=== PATIENT | female | born 1960 | race Caucasian/White ===

== ENCOUNTER 2020-12-10 16:46 | Emergency (ER) | payer MEDICARE, SELFPAY ==
--- NOTE | ~2020-12-10 | XR_ITS ---
XR chest 2V DATE: 12/10/2020 17:47 INDICATION: Posterior the mid upper thoracic/back pain today. History of hypertension. TECHNIQUE: PA and lateral views COMPARISON: 05/12/2015 PA and lateral chest FINDINGS: Normal heart size. There is aortic unfolding. No hilar or mediastinal enlargement. No pulmo nary infiltrate or consolidation, pleural effusion or pulmonary vascular congestion or pneumothorax. Included skeletal structures are unremarkable. IMPRESSION: No active cardiopulmonary disease Aortic unfolding Reviewed, dictated and finalized at location [facility].
--- NOTE | ~2020-12-10 | CT_ITS ---
EXAMINATION: CTA chest PE protocol DATE: 12/10/2020 18:59 INDICATION: Right posterior chest pain TECHNIQUE: Computed tomography angiography (CTA) of the chest was performed with 100 mL Omnipaque-350 intravenous contrast timed to evaluate the pulmonary arteries. Coronal maximum intensity projection 3D-reconstructions were created by the technologist. Automated exposure control and iterative reconst ruction technique were employed. Exam dose: 545.04 mGy-cm total exam DLP. COMPARISON: 12/10/2020 PA and lateral chest FINDINGS: There is diagnostic contrast enhancement of the pulmonary arteries and no evidence of pulmo nary embolism. Borderline thoracic aortic size. No thoracic aortic aneurysm is evident. Heart size is normal. No pericardial or pleural effusion. Bilateral primarily lower lobe dependent atelectasis. No pulmonary consolidation or pneumothorax. IMPRESSION: No evidence of pulmonary embolism Bilateral primarily lower lobe dependent atelectasis Reviewed, dictated and finalized at [facility]. Reviewed, dictated and finalized at location A.
[2020-12-10 17:07] VITALS: BP 138/106; PULSE 78; RESP 18; TEMP 36.4; O2SAT 99
--- NOTE | 2020-12-10 17:35 | ECG_ITS ---
Measurements Intervals [place] Rate: 71 P: 13 OK: 150 QRS: 1 QRSD: 105 T: 54 QT: 389 QTc: 423 Interpretive Statements SINUS RHYTHM BASELINE WANDER- I, II, AVR, AVL, AVF NORMAL ECG Electronically Signed On 12-10-2020 21:16:44 CDT by Shaji Arceo D.O.
[2020-12-10 18:12] LABS: Basophils Absolute Auto 0.1 K/mm3 (0.0-0.1); Basophils Percent Auto 0.6 % (0.2-1.2); Eosinophils Absolute Auto 0.2 K/mm3 (0-0.3); Eosinophils Percent Auto 1.8 % (0-4.4); Hematocrit 41.1 % (37.0-47.0); Hemoglobin 13.7 g/dL (12.0-15.0); Immature Granulocyte Absolute 0.02 K/mm3 (0.00-0.031); Immature Granulocyte Percent A 0.2 % (0-0.5); Lymphocytes Absolute Auto 2.03 K/mm3 (0.9-3.2); Lymphocytes Percent Auto 24.3 % (18.3-44.2); Mean Corpuscular HGB Conc 33.3 g/dl (32-36); Mean Corpuscular Hemoglobin 29.2 pg (26-34); Mean Corpuscular Volume 87.6 fl (80-100); Monocytes Absolute Auto 0.7 K/mm3 (0.1-0.6); Monocytes Percent Auto 8.2 % (2.6-8.5); Neutrophils Absolute Auto 5.4 K/mm3 (1.3-6.7); Neutrophils Percent Auto 64.9 % (45.5-73.1); Platelet Count Result 176 k/mm3 (150-375); Red Blood Count 4.69 M/mm3 (4.2-5.4); Red Cell Distribution Width 12.7 % (11.5-14.5); White Blood Count 8.3 K/mm3 (4.5-10.0)
[2020-12-10 18:22] LABS: Anion Gap 8 mmol/L (8-16); Blood Urea Nitrogen 20 mg/dL (7-17); Calcium 9.7 mg/dL (8.4-10.2); Carbon Dioxide 30 mmol/L (22-30); Chloride 107 mmol/L (98-107); Estimated CRCL calculation 61 ml/min; Estimated Glomerular Filt Rate 57; Glucose 93 mg/dL (65-105); Potassium 4.1 mmol/L (3.4-5.0); Sodium 145 mmol/L (137-145)
[2020-12-10 18:23] LABS: INR 0.9; Prothrombin Time 12.3 Seconds (11.1-14.7)
[2020-12-10 18:24] LABS: Partial Thromboplastin Time 26.3 SECONDS (22.3-36.8)
[2020-12-10] MEDS: HYDROmorphone HCL INJ (*CRX) 1 MG/ML SYR 0.5 MG IV PUSH (18:28)
[2020-12-10] MEDS: ONDANSETRON INJ 4 MG/2 ML VIAL IV PUSH (18:28)
[2020-12-10 18:29] LABS: Alanine Aminotransferase 17 U/L (4-35); Albumin Level 4.5 g/dL (3.5-5.1); Alkaline Phosphatase 62 U/L (38-126); Aspartate Amino Transferase 25 U/L (14-36); Bilirubin,Total 0.4 mg/dL (0.2-1.3); Lipase 71 U/L (23-300)
[2020-12-10 18:34] LABS: Troponin I < 0.012 ng/mL (0.000-0.034)
--- NOTE | 2020-12-10 18:45 | ED.BACK ---
HPI - Back Pain/Injury General Chief Complaint: Back Pain/Injury Stated Complaint: back pain, arm pain, sob Time Seen by Provider: 12/10/20 17:36 Source: patient and RN notes reviewed Mode of arrival: ambulatory Limitations: no limitations History of Present Illness HPI Narrative: This is a 60 year old female with history of chronic pain syndrome who presents for evaluation of right upper back pain. She states she woke up with this pain 8 am this morning. She states her pain is worse with movement of her arm and breathing. She has been taking prescribed SOMA without relief of pain. She denies associated extremity weakness, numbness, tingling, chest pain, cough, fever, or abdominal pain. She also reports some shortness of breath. Related Data Home Medications Medication Instructions Recorded Confirmed amlodipine 5 mg tablet 5 mg PO DAILY 02/23/20 03/02/20 benazepril 10 mg tablet 10 mg PO DAILY 02/23/20 03/02/20 metoprolol succinate 25 mg 25 mg PO DAILY 02/23/20 03/02/20 tablet,extended release 24 hr Allergies Allergy/AdvReac Type Severity Reaction Status Date / Time codeine Allergy Severe Chest pain Verified 03/02/20 11:55 hydrocodone Allergy Intermediate Chest pain Verified 03/02/20 11:55 morphine Allergy Intermediate Nausea And Verified 03/02/20 11:55 Vomiting tramadol Allergy Intermediate Chest pain Verified 03/02/20 11:55 Review of Systems Review of Systems: All systems reviewed & are unremarkable except as noted in HPI and below PMFSH Past Medical History Medical History (Updated 12/10/20 @ 19:35 by Melissa Hardy MD) Chronic pain syndrome Degenerative disc disease, cervical Eye exam normal Hypertension Mixed hyperlipidemia Surgical History Surgical History (Updated 12/10/20 @ 18:53 by Melissa Hardy MD) H/O: hysterectomy Social History Social History Smoking status: Never smoker Alcohol intake: never Gender identity (if verbalized by the patient): Female Exam Const: General: alert Orientation/consciousness: patient oriented x3 HENMT: Head: normocephalic and atraumatic Eyes: Pupils: Equal, round and reactive pupils present EOM: EOMs intact bilaterally Neck: Neck: normal visual inspection Chest: Chest palpation & inspection: normal inspection of the chest Resp: Effort & Inspection: normal respiratory effort and no retractions Auscultation: clear to auscultation bilaterally Cardio: Rate: regular rate Rhythm: regular rhythm Heart sounds: no murmurs Other: bilateral palpable radial pulses GI: GI Palp: Yes Soft to palpation, No Tenderness to palpation present (GI) and No Guarding due to palpation present (GI) Auscultation: normal bowel sounds Back/Spine/Pelvis: Back: no CVA tenderness Thoracic/Lumbar Spine: other (no swelling) Skin: General skin exam: normal color Rashes: no rashes Neuro: General: patient oriented x3, moves all extremities and CN's II-XI intact bilaterally Extrem: Other: pain with abduction of right arm Psych: Mental Status: mental status grossly normal Affect: normal affect Course Reevaluation(s) Reevaluation #1: Patient just walked back from restroom in no distress. She is able to move both arms. She reports she feels better. No abnormalities seen on xray and CTA . No PE, no bone abnormality, no pneumonia. THis pain will be treated as musculoskeletal pain Date: 12/10/20 Time: 19:34 Vital Signs Vital signs: Vital Signs Temperature 97.5 F L 12/10/20 17:07 Pulse Rate 78 12/10/20 17:07 Respiratory Rate 18 12/10/20 17:07 Blood Pressure 138/106 H 12/10/20 17:07 Pulse Oximetry 99 12/10/20 17:07 Temperature 97.5 F L 12/10/20 17:07 Pulse Rate 78 12/10/20 17:07 Respiratory Rate 18 12/10/20 17:07 Blood Pressure 138/106 H 12/10/20 17:07 Pulse Oximetry 99 12/10/20 17:07 MDM - Back Pain/Injury Lab Data Attestation: I reviewed the patient's lab results. Result diagrams: 12/10/20 18
[2020-12-10 20:04] VITALS: BP 146/89; PULSE 88; RESP 17; O2SAT 99
== END 2020-12-10 20:05 | disposition home or self-care (01) ==
PROVIDERS: Emergency Provider General Practice
DX: M54.6 Pain in thoracic spine (principal); G89.4 Chronic pain syndrome; M50.30 Other cervical disc degeneration, unspecified cervical region; I10 Essential (primary) hypertension; E78.2 Mixed hyperlipidemia; R91.8 Other nonspecific abnormal finding of lung field; I77.819 Aortic ectasia, unspecified site; R06.02 Shortness of breath
CPT/HCPCS: 36415; 71046; 71275; 80048; 80076; 83690; 84484; 85025; 85610; 85730; 93005; 96374; 96375; 99284; J1170; J2405; Q9967

== ENCOUNTER 2022-05-22 14:57 | Outpatient (CLI) | payer MEDICARE, SELFPAY ==
--- NOTE | ~2022-05-22 | CT_ITS ---
EXAMINATION: CT cervical spine wo con DATE: 05/22/2022 15:24 INDICATION: Neck pain. Cervical radiculopathy. TECHNIQUE: Computed tomography (CT) of the cervical spine was performed without intravenous contrast. Automated exposure control and iterative reconstruction technique were employed. The dose-length pro duct was 471.92 mGy-cm. COMPARISON: None FINDINGS: There is a small right mastoid effusion. Bone alignment is normal. Vertebral body heights a nd intervertebral disc heights are normal. The following disc levels are specifically discussed: C2-C3: There is mild bilateral uncovertebral joint osteoarthritis. There is mild bilateral facet join t osteoarthritis. There is no neural foraminal stenosis. There is no central canal stenosis. C3-C4: There is no uncovertebral joint osteoarthritis. There is mild right and severe left facet join t osteoarthritis. There is mild left neural foraminal stenosis. There is no central canal stenosis. C4-C5: There is mild bilateral uncovertebral joint osteoarthritis. There is mild bilateral facet join t osteoarthritis. There is no neural foraminal stenosis. There is no central canal stenosis. C5-C6: There is no uncovertebral joint osteoarthritis. There is mild right and moderate left facet blaine int osteoarthritis. There is mild left neural foraminal stenosis. There is no central canal stenosis. C6-C7: There is no uncovertebral joint osteoarthritis. There is moderate bilateral facet joint osteoa rthritis. There is mild bilateral neural foraminal stenosis. There is no central canal stenosis. C7-T1: There is no uncovertebral joint osteoarthritis. There is severe bilateral facet joint osteoart hritis. There is mild bilateral neural foraminal stenosis. There is no central canal stenosis. IMPRESSION: 1. Mild cervical spondylosis. Reviewed, dictated and finalized at location A. 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
== END 2022-05-22 14:58 | disposition home or self-care (01) ==
PROVIDERS: PCP Family Medicine
DX: M47.892 Other spondylosis, cervical region (principal)
CPT/HCPCS: 72125

== ENCOUNTER 2022-08-24 09:32 | Outpatient (CLI) | payer MEDICARE, SELFPAY ==
--- NOTE | ~2022-08-24 | XR_ITS ---
XR knee LT 3V 08/24/2022 09:59 Indication: Left knee pain Procedure: 3 views left knee Comparison: No prior studies for comparison. Findings: There is chondrocalcinosis. No fracture or traumatic malalignment. There is a moderate size joint effusion. No foreign bodies. Impression: 1: Moderate joint effusion. Reviewed, dictated and finalized at location A. 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
== END 2022-08-24 09:33 | disposition home or self-care (01) ==
PROVIDERS: PCP Family Medicine; Visit Provider Nurse Practitioner Gerontology
DX: M25.462 Effusion, left knee (principal)
CPT/HCPCS: 73562

== ENCOUNTER 2023-09-23 10:45 | Outpatient (CLI) | payer MEDICARE, SELFPAY ==
--- NOTE | ~2023-09-23 | XR_ITS ---
Thoracic spine: Clinical Indication: Back pain AP and lateral views were performed. No fracture is seen. There is normal alignment of the vertebrae. The intervertebral disc spaces appe ar normal. Paravertebral soft tissues appear normal. Impression: No significant abnormalities noted. Reviewed, dictated and finalized at [facility]. Impression: No significant abnormalities noted.
--- NOTE | ~2023-09-23 | XR_ITS ---
Left Shoulder Technique: AP and scapular Y views were obtained. Clinical History: Pain Findings: No fracture or dislocation is seen. Osseous alignment is anatomic. The glenohumeral and acr omioclavicular joint spaces are preserved. Soft tissues are unremarkable. Impression: Unremarkable left shoulder radiographs. Reviewed, dictated and finalized at [facility]. Impression: Unremarkable left shoulder radiographs.
== END 2023-09-23 10:46 ==
PROVIDERS: PCP Physician Assistant; Visit Provider Physician Assistant
DX: M54.9 Dorsalgia, unspecified (principal); M25.512 Pain in left shoulder
CPT/HCPCS: 72072; 73030

== ENCOUNTER 2023-11-10 08:10 | Outpatient (CLI) | payer MEDICARE, SELFPAY ==
--- NOTE | ~2023-11-10 | XR_ITS ---
EXAMINATION: XR hip RT min 2V DATE: 11/10/2023 08:36 INDICATION: Right hip pain. TECHNIQUE: 2 views of right hip were obtained. COMPARISON: Right hip radiographs 09/16/2017 FINDINGS: Bone alignment is normal. No fracture. There is severe right hip osteoarthritis. IMPRESSION: 1. Severe right hip osteoarthritis. Reviewed, dictated and finalized at location A.
== END 2023-11-10 08:11 ==
LOC: MICIMG 08:11
PROVIDERS: PCP Physician Assistant; Visit Provider Physician Assistant
DX: M16.11 Unilateral primary osteoarthritis, right hip (principal)
CPT/HCPCS: 73502

== ENCOUNTER → 2024-01-13 10:35 | Outpatient (REF) | payer MEDICARE, SELFPAY | LOC: ANHLAB 10:35 | PROVIDERS: PCP Family Medicine; Visit Provider Plastic Surgery | DX: L72.0 Epidermal cyst (principal); D36.12 Benign neoplasm of peripheral nerves and autonomic nervous system, upper limb, including shoulder | CPT/HCPCS: 88304; 88305 ==

== ENCOUNTER 2024-02-23 09:30 | Outpatient (CLI) | payer MEDICARE, SELFPAY ==
[2024-02-23 11:22] LABS: Basophils Absolute Auto 0.1 K/mm3 (0.0-0.1); Basophils Percent Auto 0.9 % (0.2-1.2); Eosinophils Absolute Auto 0.2 K/mm3 (0-0.3); Eosinophils Percent Auto 2.4 % (0-4.4); Hematocrit 39.2 % (37.0-47.0); Hemoglobin 12.9 g/dL (12.0-15.0); Immature Granulocyte Absolute 0.04 K/mm3 (0.00-0.031); Immature Granulocyte Percent A 0.5 % (0-0.5); Lymphocytes Absolute Auto 1.91 K/mm3 (0.9-3.2); Lymphocytes Percent Auto 24.3 % (18.3-44.2); Mean Corpuscular HGB Conc 32.9 g/dl (32-36); Mean Corpuscular Hemoglobin 29.3 pg (26-34); Mean Corpuscular Volume 89.1 fl (80-100); Mean Platelet Volume 11.5 fl (7.4-10.4); Monocytes Absolute Auto 0.8 K/mm3 (0.1-0.6); Monocytes Percent Auto 9.5 % (2.6-8.5); Neutrophils Absolute Auto 4.9 K/mm3 (1.3-6.7); Neutrophils Percent Auto 62.4 % (45.5-73.1); Platelet Count Result 184 k/mm3 (150-375); Red Cell Distribution Width 13.2 % (11.5-14.5); White Blood Count 7.9 K/mm3 (4.5-10.0)
[2024-02-23 11:31] LABS: Albumin Level 4.5 g/dL (3.5-5.1)
[2024-02-23 11:39] LABS: Anion Gap 8 mmol/L (4-12); Blood Urea Nitrogen 27 mg/dL (7-17); Calcium 10.2 mg/dL (8.4-10.2); Carbon Dioxide 32 mmol/L (22-30); Chloride 101 mmol/L (98-107); Estimated Glomerular Filt Rate 45; Glucose 102 mg/dL (65-110); Potassium 3.5 mmol/L (3.4-5.0); Sodium 141 mmol/L (137-145)
[2024-02-23 12:10] LABS: Urine Cotinine NEGATIVE
[2024-02-23 12:28] LABS: MRSA (PCR) NOT DETECTED (NOT DETECTE)
[2024-02-23 16:01] LABS: Hemoglobin A1C 5.4 % (<5.7)
== END 2024-02-23 09:31 | disposition home or self-care (01) ==
PROVIDERS: Anesthesiology; PCP Family Medicine; Visit Provider Orthopaedic Surgery
DX: M16.11 Unilateral primary osteoarthritis, right hip (principal); Z01.818 Encounter for other preprocedural examination
CPT/HCPCS: 36415; 80048; 80307; 82040; 83036; 85025; 86850; 86900; 86901; 87641

== ENCOUNTER 2024-03-02 16:45 | Observation (INO) | payer MEDICARE, SELFPAY ==
[2024-02-23 10:11] VITALS: BP 126/61; PULSE 82; RESP 16; TEMP 36.4; O2SAT 98; BMI 31.6
--- NOTE | 2024-02-23 10:24 | PC.NURSE ---
Report to the Outpatient Waiting Room, entrance under the green pavilion located off [facility], at time __6:00AM on date __03/01/24 . Planned Procedure Time: __7:30AM . Time changes happen often and if your time is changed the preop area will call you the afternoon before. - You and your visitor will be asked to self-screen and do not enter if you have any COVID symptoms. - A mask is optional within the hospital at this time. Patients may have clear liquids (water, carbonated beverages, clear teas, apple juice) until 3 hours prior to surgery with a maximum of 20 ounces. - No food from midnight until time of surgery. Take the following medications with a SIP of water the morning of surgery: ____AMLODIPINE, METOPROLOL. MAY HAVE GABAPENTIN & TRAMADOL NEEDED DO NOT STOP ANY OF YOUR OTHER PRESCRIPTION MEDICATIONS PRIOR TO SURGERY ?EXCEPT THE FOLLOWING Medications to discontinue per physician __HOLD ALL VITAMINS/SUPPLEMENTS 3 DAYS PRE-OP PER ANESTHESIA Date to take last dose 02/26/24 Please no make-up, nail romanian, hairspray, perfume, deodorant, or body powder the day of surgery. No jewelry (including any body piercings) or valuables the day of surgery, leave them at home. Please take a shower or bath the night before, or the morning of, surgery with an antibacterial soap. Wear comfortable, loose fitting clothing. - Jewelry must be removed prior to entering the operating room. Rings and piercings that are not removed may be cut off. - The hospital will not accept responsibility for valuables. - Please leave all valuables, including medications, at home the day of surgery. If you are going home after surgery, a licensed stock driver must drive you home. - NO public transportation without another adult if you receive anesthesia. - We recommend that an adult stay with you for 24 hours following discharge. - We also recommend that you do not drive, make important decision, drink alcoholic beverages, or take any drugs that were not prescribed by your health care provider for at least 24 hours after your discharge time. Follow any additional instructions given to you from your surgeon. If you or anyone in your household have experienced Covid symptoms in the past week, please notify your surgeon or the nurse liaison at the phone number below for possible testing. Telephone instructions given to ___PATIENT and asked if any additional questions and then verbalized understanding. Patient advised to call surgeon office or pre surgery nurse liaison [phone] if any additional questions.
--- NOTE | 2024-02-26 15:19 | PM.IMHP ---
H&P: HPI History of Present Illness Date/Time: 02/26/24 15:19 Chief Complaint: Patient presents complaints of right hip pain. She has a idoj-po-yuka osteoarthritis arthritis and has failed conservative treatment. Review of Systems Musculoskeletal: Musculoskeletal: Reports arthralgias, Reports joint swelling and Reports stiffness PMF Past Medical History Medical History Acute back pain Chronic insomnia Chronic pain syndrome Degenerative arthritis of lumbar spine Degenerative disc disease, cervical Establishing care with new doctor, encounter for Eye exam normal Headaches, cluster Hypertension Joint pain in both hands Knee pain Leg cramps Lumbar radiculopathy, chronic Mixed hyperlipidemia Primary insomnia Sinusitis Spine pain, cervical Surgical History Surgical History H/O: hysterectomy Hx of foot surgery Family History Family History Father Hypertension Cancer Mother Hypertension Depression CHF (congestive heart failure) Dementia Sibling Diabetes mellitus Heart disease Grandparent Skin cancer Sibling , hit and run crash Acute myocardial infarction Social History Social History Social History: Smoking status: Never smoker Second hand tobacco smoke exposure: No Alcohol intake: never Substance use: never Substance use type: does not use Do You Feel Safe in your Home?: Yes Lack of Transportation: No Lack of Food: Never True Current Housing: I Do Not Have Housing Concerned About Future Housing: No Difficulty Paying Gas/Electric Bills: No Difficulty Paying for Meds: No Currently Unemployed: Decline to Answer Education: High School Diploma/GED Difficulty w/ Childcare or Family Care: No Living arrangements: with family Additional living arrangements comments: HUSB & DAUGHTER Occupation/Education: unemployed Additional occupation/education comments: Disability Gender identity (if verbalized by the patient): Female Sexual Orientation (if Verbalized by the Patient): Straight or Heterosexual Spiritual care concerns: No Meds Home Medications and Allergies Home Medications Medication Instructions Recorded Confirmed Type metoprolol succinate 25 mg 25 mg PO DAILY 02/23/20 02/23/24 History tablet,extended release 24 hr valacyclovir 500 mg tablet 500 mg PO DAILY 01/04/21 02/23/24 History tramadol 50 mg tablet 50 mg PO Q8H PRN pain #40 tabs 07/09/22 02/23/24 Rx amlodipine 10 mg tablet 10 mg PO DAILY 09/23/23 02/23/24 History cyclobenzaprine 10 mg tablet See Rx Instructions .Route 11/10/23 02/23/24 Rx .COMPLEX #90 tabs gabapentin 400 mg capsule See Rx Instructions .Route 11/10/23 02/23/24 Rx .COMPLEX #360 caps simvastatin 40 mg tablet 40 mg PO DAILY #90 tabs 11/10/23 02/23/24 Rx antiarthritic combination no.2 900 900 mg PO DAILY 12/11/23 02/23/24 History mg tablet (glucosamine-chondroitin) calcium 600 mg-D3 800 unit-mag11 1 tablet PO DAILY 12/11/23 02/23/24 History 50 xl-otnx-uyydkv-antonino-s.borat tablet (Caltrate 600-D Plus Minerals) lisinopril 20 1 tablet PO DAILY 12/11/23 02/23/24 History mg-hydrochlorothiazide 12.5 mg tablet turmeric 400 mg capsule 400 mg PO DAILY 12/11/23 02/23/24 History vitamin E (dl, acetate) 180 mg 180 mg PO DAILY 12/11/23 02/23/24 History (400 unit) capsule zolpidem 10 mg tablet 10 mg PO QHS #30 tabs 02/03/24 02/23/24 Rx docusate sodium 100 mg capsule 100 mg PO DAILY 02/23/24 02/23/24 History rivaroxaban 10 mg tablet (Xarelto) 10 mg PO DAILY PE prophylaxis s/p 02/26/24 Rx joint replacement surgery 21 days #21 tabs Allergies Allergy/AdvReac Type Severity Reaction Status Date / Time naproxen [From Naprosyn] AdvReac Severe
[2024-03-01] VITALS (20 sets, daily range): BP systolic 98–145; BP diastolic 55–81; PULSE 58–86; RESP 10–21; TEMP 36.1–37.2; O2SAT 94–100
--- NOTE | 2024-03-01 06:57 | WPDANESEPPF ---
Anes - Initial Pre Proc Eval Procedure: Operation Date: 03/01/24 07:30 Proposed Procedures p Right Total Hip Arthroplasty - Declan Wetzel MD Date/Time: 03/01/24 06:57 Surgeon: Declan Wetzel MD Pre Op Diagnosis: oa right hip Patient Data Age: 63 Gender: F Height: 1.68 m Weight: 89 kg Last Vital Signs Temp 97.6 F 02/23/24 10:11 Pulse 82 02/23/24 10:11 Resp 16 02/23/24 10:11 BP 126/61 02/23/24 10:11 Pulse Ox 98 02/23/24 10:11 O2 Del Method Room Air 02/23/24 10:11 Allergies Allergy/AdvReac Type Severity Reaction Status Date / Time naproxen [From Naprosyn] AdvReac Severe bleeding Verified 02/23/24 10:03 ulcer Home Medications Medication Instructions Recorded Confirmed Type metoprolol succinate 25 mg 25 mg PO DAILY 02/23/20 02/23/24 History tablet,extended release 24 hr valacyclovir 500 mg tablet 500 mg PO DAILY 01/04/21 02/23/24 History tramadol 50 mg tablet 50 mg PO Q8H PRN pain #40 tabs 07/09/22 02/23/24 Rx amlodipine 10 mg tablet 10 mg PO DAILY 09/23/23 02/23/24 History cyclobenzaprine 10 mg tablet See Rx Instructions .Route 11/10/23 02/23/24 Rx .COMPLEX #90 tabs simvastatin 40 mg tablet 40 mg PO DAILY #90 tabs 11/10/23 02/23/24 Rx antiarthritic combination no.2 900 900 mg PO DAILY 12/11/23 02/23/24 History mg tablet (glucosamine-chondroitin) calcium 600 mg-D3 800 unit-mag11 1 tablet PO DAILY 12/11/23 02/23/24 History 50 rv-ygqj-bykxzw-antonino-s.borat tablet (Caltrate 600-D Plus Minerals) lisinopril 20 1 tablet PO DAILY 12/11/23 02/23/24 History mg-hydrochlorothiazide 12.5 mg tablet turmeric 400 mg capsule 400 mg PO DAILY 12/11/23 02/23/24 History vitamin E (dl, acetate) 180 mg 180 mg PO DAILY 12/11/23 02/23/24 History (400 unit) capsule zolpidem 10 mg tablet 10 mg PO QHS #30 tabs 02/03/24 02/23/24 Rx docusate sodium 100 mg capsule 100 mg PO DAILY 02/23/24 02/23/24 History rivaroxaban 10 mg tablet (Xarelto) 10 mg PO DAILY PE prophylaxis s/p 02/26/24 Rx joint replacement surgery 21 days #21 tabs gabapentin 400 mg capsule See Rx Instructions .Route 03/01/24 Rx .COMPLEX #360 caps Patient hx anesthesia problems: none Family hx anesthesia problems: none Results Review: All pre-operative results and documents have been reviewed as part of the pre-operative evaluation. [facility] Past Medical History Medical History Acute back pain Chronic insomnia Chronic pain syndrome Degenerative arthritis of lumbar spine Degenerative disc disease, cervical Establishing care with new doctor, encounter for Eye exam normal Headaches, cluster Hypertension Joint pain in both hands Knee pain Leg cramps Lumbar radiculopathy, chronic Mixed hyperlipidemia Primary insomnia Sinusitis Spine pain, cervical Surgical History Surgical History H/O: hysterectomy Hx of foot surgery Family History Family History Father Hypertension Cancer Mother Hypertension Depression CHF (congestive heart failure) Dementia Sibling Diabetes mellitus Heart disease Grandparent Skin cancer Sibling , hit and run crash Acute myocardial infarction Social History Social History Social History: Smoking status: Never smoker Second hand tobacco smoke exposure: No Alcohol intake: never Substance use: never Substance use type: does not use Do You Feel Safe in your Home?: Yes Lack of Transportation: No Lack of Food: Never True Current Housing: I Do Not Have Housing Concerned About Future Housing: No Difficulty Paying Gas/Electric Bills: No Difficulty Paying for Meds: No Currently Unemployed: Decline to Answer Education: High School Diploma/GED Difficult
[2024-03-01] MEDS: TRANEXAMIC ACID 1,000MG/ISO100 1,000 MG/100 ML BAG 200 MG IVPB (07:00)
[2024-03-01] MEDS: VANCOMYCIN 1,250 MG/NS 250 ML BAG 166.67 MG IVPB (07:00)
[2024-03-01] MEDS: ACETAMINOPHEN 500 MG TABLET 1000 MG PO (07:00)
[2024-03-01] MEDS: LACTATED RINGERS 1,000 ML 30 ML IV CONT ×2 (07:00→10:12)
--- NOTE | 2024-03-01 07:03 | WPDHPUPDATE1 ---
History and Physical Update Update Date/Time: 03/01/24 07:03 History and Physical has been reviewed, including an updated exam of the patient. There are NO changes in the patient's condition. Risks, benefits, and alternatives have been discussed and questions answered. Patient agrees to proceed with procedure.
[2024-03-01] MEDS: ceFAZolin 2 GM/D5W 50 ML 2 GM/50 ML BAG IVPB ×3 (07:26→20:27)
--- NOTE | 2024-03-01 09:01 | W.PM.PROC2 ---
Procedure Note - Detailed Date of Procedure 03/01/24 Pre-op Diagnosis Osteoarthitis right hip Post-op Diagnosis Same Procedure Performed RIGHT Total Hip Surgeon Declan Wetzel MD Tobacco Drier Operator Delvin Galindo Anesthesia General Indications Pain and Arthritis Description of Procedure Patient was brought to the operating room #8, and an anesthetic was administered. The patient was placed with the operative Hip up and sterilely prepped and draped in the usual manner. A longitudinal incision was performed. Dissection was carried down to the fascia. A Hardinge type approach was used and the femoral head was dislocated anteriorly. The Femoral head was removed a finger breath above the lesser trochanter. The acetabulum was serially reamed to accept a 52 component. This was impacted into place and secured with 2 25mm screws. A high wall liner was placed. The femur was reamed and broached to accept an 8 component which was impacted into place. A minus 3 head and neck were placed and the hip was put through full range of motion. The hip was noted to be stable. The wounds were then closed in a layered fashion using #5 ethibond, 2 vicryl, 2-0 vicryl and spike. Patient left the operating room in satisfactory condition. Estimated Blood Loss 500 Drains No Packing No Pathology None sent Complications No immediate complications Condition Stable Disposition PACU [facility] Billing Surgery - Charge Forward: Surgery Billing ([id number] Total Hip)
[2024-03-01] MEDS: fentaNYL CITRATE INJ (*CRX) 100 MCG/2 ML VIAL 25 MCG IV PUSH ×8 (09:46→10:00)
[2024-03-01] MEDS: HYDROmorphone HCL INJ (*CRX) 1 MG/ML SYR 0.25 MG IV PUSH ×8 (10:05→11:05)
[2024-03-01] MEDS: HYDROmorphone HCL INJ (*CRX) 1 MG/ML SYR IV PUSH (10:30)
[2024-03-01] MEDS: diazePAM INJ (*CRX) 10 MG/2 ML SYRINGE 2 MG IV PUSH (11:03)
--- NOTE | 2024-03-01 12:17 | ADMGEN ---
This patient, Mary Diane, was admitted to 3 Med Surg Room 311-01. Patient/family oriented to hospital policies and general routines including ID bracelet, bed and alarms, visiting hours, pain management, procedures, bathroom and other care routines, personal items, smoking policy, room service/diet, and visiting hours. Information on how to activate the Rapid Response Team has been discussed. Patient/Family are encouraged to report perceived risks to care and to ask questions if they do not understand what they are told or what they should do.
--- NOTE | 2024-03-01 13:20 | P.CONS_ITS ---
Assessment and Plan Assessment and plan (1) Status post total hip replacement, right: Code(s): Z96.641 - Presence of right artificial hip joint Status: Acute Assessment and Plan: 03/01/24: * Status post elective right total hip replacement with Dr. Wetzel today * Continue pain and nausea control per surgical team * Continue ice packs as needed * Incentive spirometry q.2 hours * Continue neurovascular checks and hip precautions * Continue Flexeril * Continue cefazolin for total of 3 bags * She was also given a dose of vancomycin in the OR * Continue stool softener and Miralax * Continue Xarelto and SCDs * Continue normal saline at 125 mL/hour * Wean O2 for sat greater than 92%, currently on 2 L nasal cannula * PT and OT ordered * Toe-touch weight-bearing status (2) Mixed hyperlipidemia: Code(s): E78.2 - Mixed hyperlipidemia Status: Acute Assessment and Plan: 03/01/24: * Continue simvastatin (3) Gastroesophageal reflux disease: Code(s): K21.9 - Gastro-esophageal reflux disease without esophagitis Status: Acute Assessment and Plan: 03/01/24: * Pepcid ordered (4) Severe obstructive sleep apnea: Code(s): G47.33 - Obstructive sleep apnea (adult) (pediatric) Status: Acute Assessment and Plan: 03/01/24: * Order placed to use home CPAP at (5) Benign essential HTN: Code(s): I10 - Essential (primary) hypertension Status: Acute Assessment and Plan: 03/01/24: * Blood pressure ranging * Continue metoprolol, lisinopril, amlodipine (6) Chronic insomnia: Code(s): F51.04 - Psychophysiologic insomnia Status: Acute Assessment and Plan: 03/01/24: * Continue Ambien at bedtime HPI Data of Consult Date/Time: 03/01/24 13:20 Requesting Physician: Declan Wetzel MD Primary Care Provider: Tessie Mcwilliams MD Consult Narrative Narrative: Mary Diane is a 63 year old female who presented to the hospital today for elective right total hip replacement due to osteoarthritis with Dr. Wetzel. Preop labs were reviewed and showed a creatinine of 1.20, EGFR 45 otherwise unremarkable. Right hip x-ray from 11/10/2023 was reviewed and showed severe right hip osteoarthritis. We were consulted for medical management inpatient. Patient states that her pain is controlled at this time and rates it at a 4/10. She denies any fever, chills, nausea, vomiting, diarrhea, abdominal pain, chest pain, shortness a breath. She is currently on 2 L nasal cannula. Review of Systems Review of Systems: All systems reviewed & are unremarkable except as noted in HPI and below Constitutional: Constitutional: Reports as per HPI and Reports no additional constitutional complaints Eyes: Eyes: Reports as per HPI and Reports no additional eye complaints ENT: Reports system reviewed and no additional complaints, except as documented and Reports as per HPI Cardiovascular: Cardiovascular: Reports as per HPI and Reports no additional cardiovascular complaints Respiratory: Respiratory: Reports as per HPI and Reports no additional respiratory complaints Gastrointestinal: Gastrointestinal: Reports as per HPI and Reports no additional gastrointestinal complaints Genitourinary: Genitourinary: Reports no additional female genitourinary complaints and Reports as per HPI Musculoskeletal: Musculoskeletal: Reports no additional musculoskeletal complaints and Reports as per HPI I
--- NOTE | 2024-03-01 13:20 | WPDCN ---
Assessment and Plan Assessment and plan (1) Status post total hip replacement, right: Code(s): Z96.641 - Presence of right artificial hip joint Status: Acute Assessment and Plan: 03/01/24: Status post elective right total hip replacement with Dr. Wetzel today Continue pain and nausea control per surgical team Continue ice packs as needed Incentive spirometry q.2 hours Continue neurovascular checks and hip precautions Continue Flexeril Continue cefazolin for total of 3 bags She was also given a dose of vancomycin in the OR Continue stool softener and Miralax Continue Xarelto and SCDs Continue normal saline at 125 mL/hour Wean O2 for sat greater than 92%, currently on 2 L nasal cannula PT and OT ordered Toe-touch weight-bearing status (2) Mixed hyperlipidemia: Code(s): E78.2 - Mixed hyperlipidemia Status: Acute Assessment and Plan: 03/01/24: Continue simvastatin (3) Gastroesophageal reflux disease: Code(s): K21.9 - Gastro-esophageal reflux disease without esophagitis Status: Acute Assessment and Plan: 03/01/24: Pepcid ordered (4) Severe obstructive sleep apnea: Code(s): G47.33 - Obstructive sleep apnea (adult) (pediatric) Status: Acute Assessment and Plan: 03/01/24: Order placed to use home CPAP at HS (5) Benign essential HTN: Code(s): I10 - Essential (primary) hypertension Status: Acute Assessment and Plan: 03/01/24: Blood pressure ranging Continue metoprolol, lisinopril, amlodipine (6) Chronic insomnia: Code(s): F51.04 - Psychophysiologic insomnia Status: Acute Assessment and Plan: 03/01/24: Continue Ambien at bedtime HPI Data of Consult Date/Time: 03/01/24 13:20 Requesting Physician: Declan Wetzel MD Primary Care Provider: Tessie Mcwilliams MD Consult Narrative Narrative: Mary Diane is a 63 year old female who presented to the hospital today for elective right total hip replacement due to osteoarthritis with Dr. Wetzel. Preop labs were reviewed and showed a creatinine of 1.20, EGFR 45 otherwise unremarkable. Right hip x-ray from 11/10/2023 was reviewed and showed severe right hip osteoarthritis. We were consulted for medical management inpatient. Patient states that her pain is controlled at this time and rates it at a 4/10. She denies any fever, chills, nausea, vomiting, diarrhea, abdominal pain, chest pain, shortness a breath. She is currently on 2 L nasal cannula. Review of Systems Review of Systems: All systems reviewed & are unremarkable except as noted in HPI and below Constitutional: Constitutional: Reports as per HPI and Reports no additional constitutional complaints Eyes: Eyes: Reports as per HPI and Reports no additional eye complaints ENT: Reports system reviewed and no additional complaints, except as documented and Reports as per HPI Cardiovascular: Cardiovascular: Reports as per HPI and Reports no additional cardiovascular complaints Respiratory: Respiratory: Reports as per HPI and Reports no additional respiratory complaints Gastrointestinal: Gastrointestinal: Reports as per HPI and Reports no additional gastrointestinal complaints Genitourinary: Genitourinary: Reports no additional female genitourinary complaints and Reports as per HPI Musculoskeletal: Musculoskeletal: Reports no additional musculoskeletal complaints and Reports as per HPI Integumentary/Breasts: Skin/Breast: Reports system reviewed and no additional complaints, except as docu and Reports as per HPI Neurologic: Reports system reviewed and no additional complaints, except as documented and Reports as per HPI Psychiatric: Psychiatric: Reports no additional psychiatric complaints and Reports as per HPI [facility] Past Medical History Medical History Acute back pain Chronic insomnia Chronic pain syndrome Degener
[2024-03-01] MEDS: HYDROmorphone HCL INJ (*CRX) 1 MG/ML SYR 0.5 MG IV PUSH (13:22)
--- NOTE | 2024-03-01 15:52 | PCPTNOTE ---
On 03/01/24, the student, [Nakia Blancas], provided care and completed [facility] documentation on this patient. I have reviewed the student's documentation and agree with the findings.
[2024-03-01] MEDS: RIVAROXABAN 10 MG TABLET PO (17:45)
[2024-03-01] MEDS: SENNA/DOCUSATE SODIUM TABLET 2 TAB PO (17:45)
[2024-03-01] MEDS: CYCLOBENZAPRINE HCL 10 MG TABLET PO (18:29)
[2024-03-01] MEDS: SIMVASTATIN 20 MG TABLET 40 MG PO (20:18)
[2024-03-01] MEDS: FAMOTIDINE 20 MG TABLET PO (20:20)
[2024-03-01] MEDS: ZOLPIDEM TARTRATE (*CRX) 5 MG TABLET 10 MG PO (20:20)
[2024-03-01] MEDS: traMADol HCL (*CRX) 50 MG TABLET PO (20:21)
[2024-03-01] MEDS: HYDROcodone/acetaminophen (*CRX) 5-325 MG TABLET 1 TAB PO (22:21)
--- NOTE | ~2024-03-02 | XR_ITS ---
EXAMINATION: XR surgery orthopedic DATE: 03/01/2024 08:57 INDICATION: Intraoperative evaluation during right total hip arthroplasty TECHNIQUE: Frontal view of the right hip was obtained. COMPARISON: None. FINDINGS: Intraoperative image during a right total hip arthroplasty demonstrate placement of an acetabular com ponent which is fixed with at least 2 screws and which appears in near anatomic alignment on the fron mary projections. A femoral broach is in place with the proximal tip centered over the acetabular com ponent on the initial images. This was replaced with a standard femoral component which appears well seated in near-anatomic alignment on the final image. Portions of the pelvis are obscured by a bolste r. No fractures in the visualized bones. Expected sonolucent soft tissue gas at the operative bed. IMPRESSION: 1. Expected appearance during right total hip arthroplasty. Reviewed, dictated and finalized at location A.
[2024-03-02] MEDS: CYCLOBENZAPRINE HCL 10 MG TABLET PO ×2 (00:42→09:05)
[2024-03-02] MEDS: HYDROcodone/acetaminophen (*CRX) 7.5-325 MG TABLET 1 TAB PO ×4 (03:26→20:19)
[2024-03-02] MEDS: HYDROmorphone HCL INJ (*CRX) 1 MG/ML SYR IV PUSH ×2 (04:31→12:00)
[2024-03-02 04:55] VITALS: BP 136/73; PULSE 65; RESP 18; TEMP 37.2; O2SAT 97
--- NOTE | 2024-03-02 06:47 | PM.PNORT ---
Progress Note: A&P Assessment and Plan (1) Status post total hip replacement, right: Code(s): Z96.641 - Presence of right artificial hip joint Status: Acute Assessment and Plan: Patient is status post right hip replacement. She has significant osteoarthritis and failed conservative treatment. Will ambulate her today with anticipation getting her home this afternoon. Subjective Subjective Date/Time Seen: 03/02/24 06:47 Post Op day: 1 Principal diagnosis: Right hip replacement for osteoarthritis Review of Systems Musculoskeletal: Musculoskeletal: Reports arthralgias, Reports joint swelling and Reports stiffness Exam Narrative: Patient's dressing is intact. She wiggles her toes, up ambulating. Objective Data Vital Signs Vital Signs: Vital Signs - 24 hr 03/01/24 07:00 03/01/24 09:32 03/01/24 09:45 Temperature 96.9 F L 98.2 F Pulse Rate 58 L 65 86 Respiratory Rate 14 14 13 Blood Pressure 142/76 H 99/62 L 98/55 L Pulse Oximetry 100 98 98 Oxygen Delivery Room Air Simple Face Mask Simple Face Mask Oxygen Flow Rate 8 8 03/01/24 10:00 03/01/24 10:15 03/01/24 10:30 Temperature Pulse Rate 71 71 71 Respiratory Rate 14 14 Blood Pressure 128/81 127/79 137/80 Pulse Oximetry 99 98 100 Oxygen Delivery Room Air Room Air Room Air Oxygen Flow Rate 03/01/24 10:45 03/01/24 11:00 03/01/24 11:15 Temperature Pulse Rate 72 67 60 Respiratory Rate 20 16 12 Blood Pressure 117/72 125/65 115/61 Pulse Oximetry 98 97 100 Oxygen Delivery Room Air Room Air Simple Face Mask Oxygen Flow Rate 3 03/01/24 11:30 03/01/24 11:45 03/01/24 12:15 Temperature 97.4 F L Pulse Rate 69 64 65 Respiratory Rate 21 H 10 L 16 Blood Pressure 113/68 111/68 119/69 Pulse Oximetry 98 100 100 Oxygen Delivery Nasal Cannula Nasal Cannula Oxygen Flow Rate 3 3 03/01/24 12:30 03/01/24 13:10 03/01/24 13:47 Temperature 97.3 F L 97.3 F L Pulse Rate 73 63 Respiratory Rate 16 16 Blood Pressure 106/60 120/71 Pulse Oximetry 100 100 Oxygen Delivery Room Air Oxygen Flow Rate 03/01/24 13:15 03/01/24 19:05 03/01/24 20:57 Temperature 97.6 F 97.9 F 97.7 F Pulse Rate 70 72 74 Respiratory Rate 15 17 18 Blood Pressure 121/61 131/69 145/75 H Pulse Oximetry 98 97 94 Oxygen Delivery Oxygen Flow Rate 03/01/24 20:00 03/01/24 23:28 03/01/24 23:15 Temperature 98.9 F Pulse Rate 74 75 Respiratory Rate 18 16 Blood Pressure 138/76 Pulse Oximetry 94 98 96 Oxygen Delivery Room Air Room Air Oxygen Flow Rate 03/02/24 04:55 Temperature 99 F Pulse Rate 65 Respiratory Rate 18 Blood Pressure 136/73 Pulse Oximetry 97 Oxygen Delivery Oxygen Flow Rate Intake/Output Intake/Output: Intake & Output 02/28/24 02/29/24 03/01/24 03/02/24 23:59 23:59 23:59 23:59 Intake Total 1790 450 Balance 1790 450 Meds/Results Medications: Active Medications Generic Name Dose Route Start Last Admin Trade Name Freq PRN Reason Stop Dose Admin Hydrocodone Bitart/Acetaminophen 1 tab 03/01/24 11:53 03/01/24 22:21 Hydrocodone/Acetaminophen (*Crx) 5-325 Mg Tablet PO 1 tab Q4H PRN Administration Pain Rated 4-6 Hydrocodone Bitart/Acetaminophen 1 tab 03/01/24 11:53 03/02/24 03:26 Hydrocodone/Acetaminophen (*Crx) 7.5-325 Mg Tablet PO 1 tab Q4H PRN Administration Pain Rated 7-10 Amlodipine Besylate 10 mg 03/02/24 09:00 Amlodipine Besylate 10 Mg Tablet PO DAILY [facility] Cyclobenzaprine HCl 10 mg 03/01/24 21:00 03/01/24 20:19 Cyclobenzaprine Hcl 10 Mg Tablet BY MOUTH Not Given HS [facility] Cyclobenzaprine HCl 10 mg 03/01/24 17:25 03/02/24 00:42 Cyclobenzaprine Hcl 10 Mg Tablet PO 10 mg Q8H PRN Administration Muscle Spasm Docusate Sodium 100 mg 03/02/24 09:00 Docusate Sodium 100 Mg Capsule PO DAILY [facility] Famotidine 20 mg 03/01/24 21:00 03/01/24 20:20 Famotidine 20 Mg Tablet PO 20 mg Q12HR [facility] Administratio
[2024-03-02 08:00] VITALS: PULSE 65; RESP 18; O2SAT 97
[2024-03-02 09:01] LABS: Basophils Percent Auto 0.2 % (0.2-1.2); Hematocrit 30.6 % (37.0-47.0); Immature Granulocyte Absolute 0.08 K/mm3 (0.00-0.031); Immature Granulocyte Percent A 0.6 % (0-0.5); Lymphocytes Absolute Auto 1.25 K/mm3 (0.9-3.2); Mean Corpuscular HGB Conc 32.7 g/dl (32-36); Mean Corpuscular Hemoglobin 29.4 pg (26-34); Mean Platelet Volume 11.8 fl (7.4-10.4); Monocytes Absolute Auto 1.3 K/mm3 (0.1-0.6); Monocytes Percent Auto 10.6 % (2.6-8.5); Neutrophils Absolute Auto 9.9 K/mm3 (1.3-6.7); Neutrophils Percent Auto 78.6 % (45.5-73.1); Platelet Count Result 157 k/mm3 (150-375); Red Cell Distribution Width 13.5 % (11.5-14.5); White Blood Count 12.5 K/mm3 (4.5-10.0)
[2024-03-02] MEDS: ONDANSETRON INJ 4 MG/2 ML VIAL IV PUSH (09:05)
[2024-03-02] MEDS: ceFAZolin 2 GM/D5W 50 ML 2 GM/50 ML BAG IVPB (09:08)
[2024-03-02] MEDS: polyethylene glycoL 3350 17 GM POWD.PACK PO (09:09)
[2024-03-02] MEDS: hydroCHLOROthiazide 12.5 MG CAPSULE PO (09:09)
[2024-03-02] MEDS: lisinopriL 20 MG TABLET PO (09:09)
[2024-03-02] MEDS: METOPROLOL SUCCINATE EXT REL 25 MG TABCR PO (09:09)
[2024-03-02] MEDS: FAMOTIDINE 20 MG TABLET PO ×2 (09:09→20:14)
[2024-03-02] MEDS: VITAMIN E 400 UNIT CAPSULE PO (09:09)
[2024-03-02] MEDS: amLODIPine BESYLATE 10 MG TABLET PO (09:10)
[2024-03-02 09:15] LABS: Anion Gap 8 mmol/L (4-12); Blood Urea Nitrogen 18 mg/dL (7-17); Calcium 8.7 mg/dL (8.4-10.2); Carbon Dioxide 31 mmol/L (22-30); Chloride 99 mmol/L (98-107); Estimated CRCL calculation 63 ml/min; Estimated Glomerular Filt Rate > 60; Glucose 112 mg/dL (65-110); Potassium 3.2 mmol/L (3.4-5.0); Sodium 138 mmol/L (137-145)
[2024-03-02 09:38] VITALS: BP 111/56; PULSE 81; RESP 18; TEMP 36.4; O2SAT 100
[2024-03-02 13:38] VITALS: BP 120/59; PULSE 86; RESP 18; TEMP 37; O2SAT 90
--- NOTE | 2024-03-02 14:06 | WPDANESPN ---
Anes - Prog Note Post-Op Date/Time: 03/02/24 14:06 Vital Signs: Last Vital Signs Temp 36.4 C L 03/02/24 09:38 Pulse 81 03/02/24 09:38 Resp 18 03/02/24 09:38 BP 111/56 L 03/02/24 09:38 Pulse Ox 100 03/02/24 09:38 O2 Del Method Room Air 03/02/24 08:00 O2 Flow Rate 3 03/01/24 11:45 Pain Score (VAS): 0 I/O: Intake & Output 03/01/24 03/02/24 03/02/24 23:59 07:59 15:59 Intake Total 690 450 260 Balance 690 450 260 Laboratory Tests 03/02/24 08:03 03/02/24 08:03 03/02/24 08:03 WBC 12.5 H RBC 3.40 L Hgb 10.0 L Hct 30.6 L MCV 90.0 MCH 29.4 MCHC 32.7 RDW 13.5 Plt Count 157 MPV 11.8 H Immature Gran % (Auto) 0.6 H Neut % (Auto) 78.6 H Lymph % (Auto) 10.0 L [place] % (Auto) 10.6 H Eos % (Auto) 0.0 Baso % (Auto) 0.2 Lymph # (Auto) 1.25 [place] # (Auto) 1.3 H Eos # (Auto) 0.0 Baso # (Auto) 0.0 Abs Immat Gran (auto) 0.08 H Absolute Neuts (auto) 9.9 H Absolute Nucleated RBC 0.000 Nucleated RBC % 0.0 Sodium 138 Potassium 3.2 L Chloride 99 Carbon Dioxide 31 H Anion Gap 8 BUN 18 H Creatinine 0.90 Estim Creat Clear Calc 63 Estimated GFR > 60 Glucose 112 H Calcium 8.7 Patient Feedback: Patient satisfied with anesthetic care.
--- NOTE | 2024-03-02 14:38 | PM.IMPN ---
Progress Note: A&P Assessment and Plan (1) Status post total hip replacement, right: Code(s): Z96.641 - Presence of right artificial hip joint Status: Acute Assessment and Plan: 03/02/24: Status post elective right total hip replacement with Dr. Wetzel today Continue pain and nausea control per surgical team Continue ice packs as needed Incentive spirometry q.2 hours Continue neurovascular checks and hip precautions Continue Flexeril and stated on Gabapentin Continue stool softener and Miralax Continue Xarelto and SCDs Continue normal saline at 125 mL/hour Wean O2 for sat greater than 92%, currently on 2 L nasal cannula PT and OT ordered Toe-touch weight-bearing status (2) Mixed hyperlipidemia: Code(s): E78.2 - Mixed hyperlipidemia Status: Acute Assessment and Plan: 03/02/24: Continue simvastatin (3) Gastroesophageal reflux disease: Code(s): K21.9 - Gastro-esophageal reflux disease without esophagitis Status: Acute Assessment and Plan: 03/02/24: Pepcid ordered (4) Severe obstructive sleep apnea: Code(s): G47.33 - Obstructive sleep apnea (adult) (pediatric) Status: Acute Assessment and Plan: 03/02/24: Order placed to use home CPAP at HS (5) Benign essential HTN: Code(s): I10 - Essential (primary) hypertension Status: Acute Assessment and Plan: 03/02/24: Blood pressure ranging Continue metoprolol, lisinopril, amlodipine (6) Chronic insomnia: Code(s): F51.04 - Psychophysiologic insomnia Status: Acute Assessment and Plan: 03/02/24: Continue Ambien at bedtime Subjective Date/time seen: 03/02/24 14:38 Interval history: Patient on postop day 1 after right hip replacement. Patient endorses pain. Today the patient hemoglobin is dropped from 12.9-10. We believe it might be due to the dilation anemia. We will continue to trend hemoglobin. This surgical site covered with a bandage and no evidence of bleeding. Patient is on Xarelto 10 mg for the prophylaxis 35 days. Patient WBCs 12.5 and we believe it is due to the reactive leukocytosis. Patient complains of neuropathic pain and today we restarted her home medication gabapentin. Surgery continues to monitor the patient. Patient is under the PT OT. Review of Systems Review of Systems: All systems reviewed & are unremarkable except as noted in HPI and below Constitutional: Constitutional: Reports as per HPI and Reports no additional constitutional complaints Eyes: Eyes: Reports as per HPI and Reports no additional eye complaints ENT: Reports system reviewed and no additional complaints, except as documented and Reports as per HPI Cardiovascular: Cardiovascular: Reports as per HPI and Reports no additional cardiovascular complaints Respiratory: Respiratory: Reports as per HPI and Reports no additional respiratory complaints Gastrointestinal: Gastrointestinal: Reports as per HPI and Reports no additional gastrointestinal complaints Genitourinary: Genitourinary: Reports no additional female genitourinary complaints and Reports as per HPI Musculoskeletal: Musculoskeletal: Reports no additional musculoskeletal complaints and Reports as per HPI Integumentary/Breasts: Skin/Breast: Reports system reviewed and no additional complaints, except as docu and Reports as per HPI Neurologic: Reports system reviewed and no additional complaints, except as documented and Reports as per HPI Psychiatric: Psychiatric: Reports no additional psychiatric complaints and Reports as per HPI Exam Narrative: General: In no acute distress, well nourished Head: atraumatic, no encephalopathy Eyes: EOMI, PERRLA, sclera clear ENT: tacky mucous membranes, nasal passages clear Neck: supple, no JVD, no adenopathy, trachea midline Cardiac: Normal S1 and S2. RRR, No murmur, gallops or friction rubs, peripheral pulses intact. Respiratory: Lungs clear to auscultation,
[2024-03-02] MEDS: RIVAROXABAN 10 MG TABLET PO (17:29)
[2024-03-02 20:00] VITALS: PULSE 86; RESP 18; O2SAT 90
[2024-03-02] MEDS: ZOLPIDEM TARTRATE (*CRX) 5 MG TABLET 10 MG PO (20:13)
[2024-03-02] MEDS: CYCLOBENZAPRINE HCL 10 MG TABLET BY MOUTH (20:13)
[2024-03-02] MEDS: GABAPENTIN 400 MG CAPSULE 800 MG PO (20:13)
[2024-03-02] MEDS: SIMVASTATIN 20 MG TABLET 40 MG PO (20:13)
[2024-03-02 22:00] VITALS: BP 144/84; PULSE 75; RESP 22; TEMP 37.1; O2SAT 100
[2024-03-03] MEDS: HYDROcodone/acetaminophen (*CRX) 7.5-325 MG TABLET 1 TAB PO ×3 (01:56→12:40)
[2024-03-03] MEDS: CYCLOBENZAPRINE HCL 10 MG TABLET PO ×2 (01:57→08:06)
[2024-03-03 05:48] VITALS: BP 127/77; PULSE 84; RESP 18; TEMP 37.1; O2SAT 93
[2024-03-03 06:49] LABS: Hematocrit 32.1 % (37.0-47.0); Hemoglobin 10.4 g/dL (12.0-15.0); Mean Corpuscular HGB Conc 32.4 g/dl (32-36); Mean Corpuscular Hemoglobin 29.1 pg (26-34); Mean Corpuscular Volume 89.9 fl (80-100); Mean Platelet Volume 12.1 fl (7.4-10.4); Platelet Count Result 152 k/mm3 (150-375); Red Blood Count 3.57 M/mm3 (4.2-5.4); Red Cell Distribution Width 13.5 % (11.5-14.5); White Blood Count 10.2 K/mm3 (4.5-10.0)
[2024-03-03 06:59] LABS: Alanine Aminotransferase 14 U/L (6-35); Albumin Level 3.7 g/dL (3.5-5.1); Alkaline Phosphatase 49 U/L (38-126); Anion Gap 7 mmol/L (4-12); Aspartate Amino Transferase 36 U/L (14-36); Bilirubin,Total 0.6 mg/dL (0.2-1.3); Blood Urea Nitrogen 13 mg/dL (7-17); Calcium 8.6 mg/dL (8.4-10.2); Carbon Dioxide 29 mmol/L (22-30); Chloride 100 mmol/L (98-107); Estimated CRCL calculation 63 ml/min; Estimated Glomerular Filt Rate > 60; Glucose 113 mg/dL (65-110); Potassium 3.1 mmol/L (3.4-5.0); Sodium 136 mmol/L (137-145)
--- NOTE | 2024-03-03 07:36 | PM.DS ---
DS: Admitting Diagnosis Discharge Date 03/03/2024 Admitting Diagnosis Osteoarthritis Right Hip DS: Discharge Diagnosis Discharge Diagnosis (1) Status post total hip replacement, right: Code(s): Z96.641 - Presence of right artificial hip joint Status: Acute Assessment and Plan: Patient is S/P Right CHUCKIE for osteoarthritis. She had some pain issues, but is progressing slowly. Home today. (2) Osteoarthritis of right hip: Code(s): M16.11 - Unilateral primary osteoarthritis, right hip Status: Acute DS: Summary Hospital Course Hospital Course: S/P CHUCKIE for Right Hip Arthritis. She had some pain issues, but is progessing slowly. Home today. Time Spent with Patient Time attestation: Total time spent providing and/or coordinating discharge services: Exam Narrative: NVI. ambulating with a walker. Dressing intact. DS: Data Data Completed and Pending Labs on day of discharge: Labs from last 24 hours 03/03/24 03/02/24 06:02 08:03 WBC 10.2 H 12.5 H RBC 3.57 L 3.40 L Hgb 10.4 L 10.0 L Hct 32.1 L 30.6 L MCV 89.9 90.0 MCH 29.1 29.4 MCHC 32.4 32.7 RDW 13.5 13.5 Plt Count 152 157 MPV 12.1 H 11.8 H Immature Gran % (Auto) 0.6 H Neut % (Auto) 78.6 H Lymph % (Auto) 10.0 L [place] % (Auto) 10.6 H Eos % (Auto) 0.0 Baso % (Auto) 0.2 Lymph # (Auto) 1.25 [place] # (Auto) 1.3 H Eos # (Auto) 0.0 Baso # (Auto) 0.0 Abs Immat Gran (auto) 0.08 H Absolute Neuts (auto) 9.9 H Absolute Nucleated RBC 0.000 Nucleated RBC % 0.0 Sodium 136 L 138 Potassium 3.1 L 3.2 L Chloride 100 99 Carbon Dioxide 29 31 H Anion Gap 7 8 BUN 13 D 18 H Creatinine 0.90 0.90 Estim Creat Clear Calc 63 63 Estimated GFR > 60 > 60 Glucose 113 H 112 H Calcium 8.6 8.7 Total Bilirubin 0.6 AST 36 ALT 14 Alkaline Phosphatase 49 Total Protein 6.0 L Albumin 3.7 Discharge Plan Discharge Attending physician on discharge: Declan Wetzel Consulting providers: Shea Brandon Discharging Clinician: Declan Wetzel Patient Disposition: Home Health Service Activity: follow weight bearing status Diet: regular Wound Care Instructions: keep dressing dry Patient Instructions: Antibiotic Form, Rivaroxaban (By mouth) Stand Alone Forms: General Discharge Information Follow-up/Referrals: Declan Wetzel MD [Physician] - Discharge Medications: New hydrocodone-acetaminophen 7.5-325 mg tablet 1 tablet PO Q4H PRN (Reason: pain) Qty: 40 0RF cyclobenzaprine 10 mg tablet 10 mg PO HS PRN (Reason: muscle spasm) Qty: 30 0RF doxycycline hyclate 100 mg tablet 100 mg PO DAILY Qty: 10 0RF Continued metoprolol succinate 25 mg tablet extended release 24 hr 25 mg PO DAILY Patient Comments: QAM valacyclovir 500 mg tablet 500 mg PO DAILY amlodipine 10 mg tablet 10 mg PO DAILY Patient Comments: QAM lisinopril-hydrochlorothiazide 20-12.5 mg tablet 1 tablet PO DAILY Patient Comments: QAM Caltrate 600-D Plus Minerals 600 mg calcium- 800 unit-50 mg tablet 1 tablet PO DAILY turmeric 400 mg capsule 400 mg PO DAILY vitamin E (dl, acetate) 180 mg (400 unit) capsule 180 mg PO DAILY glucosamine-chondroitin 900 mg tablet 900 mg PO DAILY simvastatin 40 mg tablet 40 mg PO DAILY Qty: 90 1RF Patient Comments: HS cyclobenzaprine 10 mg tablet See Rx Instructions .ROUTE .COMPLEX Qty: 90 0RF Dose Instruction: TAKE 1 TABLET BY MOUTH ONCE DAILY IN THE EVENING Rx Instructions: TAKE 1 TABLET BY MOUTH ONCE DAILY IN THE EVENING docusate sodium 100 mg Capsule 100 mg PO DAILY tramadol 50 mg tablet 50 mg PO Q8H PRN (Reason: pain) Qty: 40 0RF zolpidem 10 mg tablet 10 mg PO QHS Qty: 30 1RF Xarelto 10 mg tablet 10 mg PO DAILY 21 Days Qty: 21 0RF Rx Instructions: take 1 tab daily x 21 days beg
[2024-03-03 08:00] VITALS: PULSE 84; RESP 18; O2SAT 93
--- NOTE | 2024-03-03 08:03 | PCPTNOTE ---
Patient refused treatment this session. Patient reported she wanted to take her pain medication first. RN aware.
[2024-03-03] MEDS: VITAMIN E 400 UNIT CAPSULE PO (10:14)
[2024-03-03] MEDS: FAMOTIDINE 20 MG TABLET PO (10:14)
[2024-03-03] MEDS: hydroCHLOROthiazide 12.5 MG CAPSULE PO (10:14)
[2024-03-03] MEDS: METOPROLOL SUCCINATE EXT REL 25 MG TABCR PO (10:14)
[2024-03-03] MEDS: lisinopriL 20 MG TABLET PO (10:14)
[2024-03-03] MEDS: GABAPENTIN 400 MG CAPSULE 800 MG PO (10:14)
[2024-03-03] MEDS: amLODIPine BESYLATE 10 MG TABLET PO (10:14)
--- NOTE | 2024-03-03 13:27 | PM.DS ---
DS: Summary Time Spent with Patient Time attestation: Total time spent providing and/or coordinating discharge services: DS: Data Data Completed and Pending Labs on day of discharge: Labs from last 24 hours 03/03/24 06:02 WBC 10.2 H RBC 3.57 L Hgb 10.4 L Hct 32.1 L MCV 89.9 MCH 29.1 MCHC 32.4 RDW 13.5 Plt Count 152 MPV 12.1 H Sodium 136 L Potassium 3.1 L Chloride 100 Carbon Dioxide 29 Anion Gap 7 BUN 13 D Creatinine 0.90 Estim Creat Clear Calc 63 Estimated GFR > 60 Glucose 113 H Calcium 8.6 Total Bilirubin 0.6 AST 36 ALT 14 Alkaline Phosphatase 49 Total Protein 6.0 L Albumin 3.7 Discharge Plan Discharge Attending physician on discharge: Declan Wetzel Consulting providers: Shea Brandon Discharging Clinician: Declan Wetzel Patient Disposition: Home Health Service Activity: follow weight bearing status Diet: regular Wound Care Instructions: keep dressing dry Discharge Instructions: Per Care Coordination: [facility] will contact you prior to their first visit. [facility] will follow for RN and PT/OT eval and treat. [facility] will start services with you with anticipation of physical and occupational therapy to start the week of 03/08/24. [facility] can be contacted at [phone]. Patient Instructions: Antibiotic Form, Rivaroxaban (By mouth) Stand Alone Forms: General Discharge Information Follow-up/Referrals: Declan Wetzel MD [Physician] - Discharge Medications: New doxycycline hyclate 100 mg tablet 100 mg PO DAILY Qty: 10 0RF hydrocodone-acetaminophen 7.5-325 mg tablet 1 tablet PO Q4H PRN (Reason: pain) Qty: 40 0RF cyclobenzaprine 10 mg tablet 10 mg PO HS PRN (Reason: muscle spasm) Qty: 30 0RF Continued metoprolol succinate 25 mg tablet extended release 24 hr 25 mg PO DAILY Patient Comments: QAM valacyclovir 500 mg tablet 500 mg PO DAILY amlodipine 10 mg tablet 10 mg PO DAILY Patient Comments: QAM lisinopril-hydrochlorothiazide 20-12.5 mg tablet 1 tablet PO DAILY Patient Comments: QAM Caltrate 600-D Plus Minerals 600 mg calcium- 800 unit-50 mg tablet 1 tablet PO DAILY turmeric 400 mg capsule 400 mg PO DAILY vitamin E (dl, acetate) 180 mg (400 unit) capsule 180 mg PO DAILY glucosamine-chondroitin 900 mg tablet 900 mg PO DAILY simvastatin 40 mg tablet 40 mg PO DAILY Qty: 90 1RF Patient Comments: HS cyclobenzaprine 10 mg tablet See Rx Instructions .ROUTE .COMPLEX Qty: 90 0RF Dose Instruction: TAKE 1 TABLET BY MOUTH ONCE DAILY IN THE EVENING Rx Instructions: TAKE 1 TABLET BY MOUTH ONCE DAILY IN THE EVENING docusate sodium 100 mg Capsule 100 mg PO DAILY tramadol 50 mg tablet 50 mg PO Q8H PRN (Reason: pain) Qty: 40 0RF zolpidem 10 mg tablet 10 mg PO QHS Qty: 30 1RF Xarelto 10 mg tablet 10 mg PO DAILY 21 Days Qty: 21 0RF Rx Instructions: take 1 tab daily x 21 days beginning the day AFTER surgery gabapentin 400 mg capsule See Rx Instructions .ROUTE .COMPLEX Qty: 360 0RF Dose Instruction: Take 2 capsules by mouth twice daily Rx Instructions: Take 2 capsules by mouth twice daily Date of admission: 03/02/24 16:45 Primary Care Provider: Tessie Mcwilliams Admitting Provider: Declan Wetzel Attending physician on admission: Declan Wetzel Condition: Improved
--- NOTE | 2024-03-03 15:56 | PM.IMPN ---
Progress Note: A&P Assessment and Plan (1) Status post total hip replacement, right: Code(s): Z96.641 - Presence of right artificial hip joint Status: Acute Assessment and Plan: 03/03/24: Status post elective right total hip replacement with Dr. Wetzel today Patient is cleared to discharge from Ortho. (2) Mixed hyperlipidemia: Code(s): E78.2 - Mixed hyperlipidemia Status: Acute Assessment and Plan: Continue simvastatin (3) Gastroesophageal reflux disease: Code(s): K21.9 - Gastro-esophageal reflux disease without esophagitis Status: Acute (4) Severe obstructive sleep apnea: Code(s): G47.33 - Obstructive sleep apnea (adult) (pediatric) Status: Acute Assessment and Plan: Order placed to use home CPAP at HS (5) Benign essential HTN: Code(s): I10 - Essential (primary) hypertension Status: Acute Assessment and Plan: Blood pressure ranging Continue metoprolol, lisinopril, amlodipine (6) Chronic insomnia: Code(s): F51.04 - Psychophysiologic insomnia Status: Acute Assessment and Plan: Continue Ambien at bedtime Subjective Date/time seen: 03/03/24 15:56 Interval history: Patient on postop day 2 after right hip replacement. Patient endorses pain. Patient hemoglobin has been stable and patient has been cleared from the Ortho to be discharged. Patient is on Xarelto 10 mg for the prophylaxis 35 days. Review of Systems Review of Systems: All systems reviewed & are unremarkable except as noted in HPI and below Constitutional: Constitutional: Reports as per HPI and Reports no additional constitutional complaints Eyes: Eyes: Reports as per HPI and Reports no additional eye complaints ENT: Reports system reviewed and no additional complaints, except as documented and Reports as per HPI Cardiovascular: Cardiovascular: Reports as per HPI and Reports no additional cardiovascular complaints Respiratory: Respiratory: Reports as per HPI and Reports no additional respiratory complaints Gastrointestinal: Gastrointestinal: Reports as per HPI and Reports no additional gastrointestinal complaints Genitourinary: Genitourinary: Reports no additional female genitourinary complaints and Reports as per HPI Musculoskeletal: Musculoskeletal: Reports no additional musculoskeletal complaints and Reports as per HPI Integumentary/Breasts: Skin/Breast: Reports system reviewed and no additional complaints, except as docu and Reports as per HPI Neurologic: Reports system reviewed and no additional complaints, except as documented and Reports as per HPI Psychiatric: Psychiatric: Reports no additional psychiatric complaints and Reports as per HPI Exam Narrative: General: In no acute distress, well nourished Head: atraumatic, no encephalopathy Eyes: EOMI, PERRLA, sclera clear ENT: tacky mucous membranes, nasal passages clear Neck: supple, no JVD, no adenopathy, trachea midline Cardiac: Normal S1 and S2. RRR, No murmur, gallops or friction rubs, peripheral pulses intact. Respiratory: Lungs clear to auscultation, no adventitious lung sounds, currently on 2L NC Gastrointestinal: soft, non-distended, non-tender, normoactive bowel sounds. :koo catheter in place Extremities: moves all extremities Skin: Right hip incision with OR dressing in place and an ice pack Neuro: Alert and oriented x4, cranial nerves intact, no neuro deficits. Psych: normal mood, normal affect, interactive Objective Data Vital Signs Vital Signs: Vital Signs - 24 hr 03/02/24 20:00 03/02/24 22:00 03/03/24 05:48 Temperature 98.7 F 98.7 F Pulse Rate 86 75 84 Respiratory Rate 18 22 H 18 Blood Pressure 144/84 H 127/77 Pulse Oximetry 90 100 93 Oxygen Delivery Room Air 03/03/24 08:00 Temperature Pulse Rate 84 Respiratory Rate 18 Blood Pressure Pulse Oximetry 93 Oxygen Delivery Room Air Intake/Output Intake/Output: Inta
== END 2024-03-03 12:30 | disposition home health service (06) ==
LOC: ANHSURGERY 17:24 → ANH3MEDSUR 17:24
PROVIDERS: General Practice; Admitting Provider Orthopaedic Surgery; PCP Family Medicine; Visit Provider Orthopaedic Surgery
PROC: (CPT 27130; principal; 2024-03-01 07:30)
DX: M16.11 Unilateral primary osteoarthritis, right hip (principal); I10 Essential (primary) hypertension; M47.26 Other spondylosis with radiculopathy, lumbar region; K21.9 Gastro-esophageal reflux disease without esophagitis; E78.2 Mixed hyperlipidemia; G47.33 Obstructive sleep apnea (adult) (pediatric); M50.30 Other cervical disc degeneration, unspecified cervical region; F51.01 Primary insomnia; D64.89 Other specified anemias
CPT/HCPCS: 27130; 36415; 80048; 80053; 80307; 82040; 83036; 85025; 85027; 86850; 86900; 86901; 87641; 97110; 97116; 97161; 97165; 97530; 97535; 99199; A9270; C1776; G0378; J0171; J0330; J0690; J1100; J1170; J2250; J2405; J2704; J3010; J3360; J3370; J7030; J7120

== ENCOUNTER 2024-09-10 02:04 | Day surgery (SDC) | payer MEDICARE, SELFPAY ==
[2024-09-06 12:04] VITALS: BMI 32.3
--- OUTSIDE RECORDS SUMMARY | 2024-09-10 02:06 | XMS_ITS | Clinical Summary ---
Author Organization [facility] at the [facility] Office Center Address [address] [place] [address] Care Team Providers Care Anesthesia Director Name Role Phone Nya Lorenzo MD Unavailable [phone] Kavin Byers MD Primary Care Provider Allergies Active Allergy Reactions Criticality Noted Date Comments Naproxen Other (See comments) High 12/04/2012 Bleeding Ulclers Medications valACYclovir (VALTREX) 500 mg tablet Take 1 tablet (500 mg total) by mouth daily Active cholecalciferol (VITAMIN D-3) 2000 unit capsule Take 2.5 capsules (5,000 Units total) by mouth daily Active vitamin E (AQUASOL E) 400 unit capsule Take 1 capsule (400 Units total) by mouth daily Active biotin 5 mg tablet Take 1 tablet by mouth daily Active gabapentin (NEURONTIN) 400 mg capsule Take 1 capsule (400 mg total) by mouth 4 (four) times a day 1 Active zolpidem (AMBIEN) 10 mg tabletIndications:S leep-Onset Insomnia Take 1 tablet (10 mg total) by mouth nightly as needed for sleep Active cyclobenzaprine (FLEXERIL) 10 mg tablet Take 1 tablet (10 mg total) by mouth 2 (two) times a day as needed for muscle spasms 20 tablet 4 Active metoprolol XL (TOPROL-XL) 25 mg extended release tablet Take 1 tablet (25 mg total) by mouth daily 90 tablet 3 5 Active amLODIPine (NORVASC) 10 mg tablet Take 1 tablet (10 mg total) by mouth daily 90 tablet 3 5 Active atorvastatin (LIPITOR) 40 mg tablet Take 1 tablet (40 mg total) by mouth nightly 90 tablet 3 5 Active ondansetron ODT (ZOFRAN-ODT) 4 mg disintegrating tablet Active Active Problems Problem Noted Date Diagnosed Date Psychophysiological insomnia 08/31/2024 Nonsmoker 08/31/2024 Restless legs 08/31/2024 Palpitations 07/22/2024 Mixed hyperlipidemia 12/17/2023 BMI 32.0-32.9,adult 07/31/2023 Papanicolaou smear 04/27/2019 Screening for osteoporosis 04/27/2019 Hx of screening mammography 04/27/2019 Localized scleroderma 12/11/2016 Overview (12/16/2023): Lichen sclerosus; Progress: Stable Added By: Dejan Hunter Add to Current Problems: NO ProblemStatus: Resolve HTN (hypertension) 02/09/2016 Assessment & Plan (12/16/2022 2:13 PM CDT): Patient with hypertension which is under control patient tolerating medications well advised to continue same and salt restricted diet Assessment & Plan (12/07/2018 4:40 PM CDT): Patient following the diet taking salt restricted diet in taking medications for control of hypertension MVP (mitral valve prolapse) 02/09/2016 Assessment & Plan (12/07/2018 4:40 PM CDT): No new symptoms MR (congenital mitral regurgitation) 02/09/2016 Assessment & Plan (12/07/2018 4:40 PM CDT): Mild mitral insufficiency Lipids abnormal 02/09/2016 Assessment & Plan (12/16/2022 2:13 PM CDT): Patient with abnormal lipids tolerating medications well on Zocor no muscle aches advised continue same low-cholesterol diet Assessment & Plan (12/07/2018 4:41 PM CDT): Patient following the diet in taking medications Back pain 02/09/2016 Chronic sinusitis 02/09/2016 Colitis 02/09/2016 Genital herpes simplex 02/08/2014 Overview (12/16/2023): Herpes simplex, without complication; Location: None Progress: Stable Added By: Sara Carrillo Add to Current Problems: YES ProblemStatus: Resolve Genital herpes, other; Progress: Stable Added By: Sara Carrillo Add to Current Problems: NO ProblemStatus: Resolve Herpesvirus infection 02/08/2014 Overview (12/16/2023): Genital herpes, other; Location: None Severity: Moderate Progress: Stable Added By: Sara Carrillo Add to Current Problems: YES ProblemStatus: Current Herpesviral infection of other urogenital tract; Severity: Moderate Progress: Stable Added By: Sara Carrillo Add to Current Problems: YES ProblemStatus: Current Hypothyroidism 12/21/2012 Overview (12/16/2023): Low thyroid; Progress: Stable Added By: Amarilis William Add to Current Problems: NO ProblemStatus: Resolve Menopausal symptom 12/04/2012 Overview (12/16/2023): Menopause; Location: None Progress: Stable Added By: Alina Swain Add to Current Problems: NO ProblemStatus: Resolve Resolved Problems Problem Noted Date Diagnosed Date Resolved Date ST elevation (STEMI) myocardial infarction 02/09/2016 07/31/2023 Assessment & Plan (12/16/2022 2:14 PM CDT): Presently doing well having no specific complaints denies chest pain chest palpitation orthopnea PND or ankle edema advised to continue same medication report any new symptoms Assessment & Plan (12/07/2018 4:40 PM CDT): Is stable CAD no chest pain Elevated brain natriuretic p eptide (BNP) level 12/01/2015 04/12/2019 Assessment & Plan (12/07/2018 4:40 PM CDT): Last BNP is normal Encounters Date Type Department Care Team Description 08/31/2024 11:00 AM ELECTRICIAN APPRENTICE Office Visit [facility] Pulmonology [facility] [address] [place] [phone] Vanessa Ga MD YEMI (obstructive sleep apnea) (Primary Dx); BMI 32.0-32.9,adult; Psychophysiological insomnia; Nonsmoker; Restless legs; Hypersomnia, unspecified 07/22/2024 9:00 AM ELECTRICIAN APPRENTICE Office Visit [facility] Cardiology [address] [place] [address] [address] [place] [address] Sebas Al MD Primary hypertension (Primary Dx); MVP (mitral valve prolapse); Mixed hyperlipidemia; Palpitations; MR (congenital mitral regurgitation); Obesity (BMI 30-39.9) 06/16/2024 Telephone [facility] Cardiology [address] [place] [address] [address] [place] [address] Jaycee Arcos NP Test Results 06/16/[address] [place] [address] Sebas Al MD Lab Results 06/14/2024 Orders Only [address] [address] Sebas Al MD from Last 3 Months Surgical History Surgery Date Site/Laterality Comments TONSILLECTOMY HYSTERECTOMY REVISION TOTAL HIP ARTHROPLASTY 03/03/2024 Right Medical History Medical History Date Comments HTN (hypertension) MVP (mitral valve prolapse) Old [place] (myocardial infarction) Elevated brain natriuretic peptide (BNP) level Mitral regurgitation Lipids abnormal Family History Relation Name Status Comments Father Alive Mother Alive Social History Tobacco Use Types Packs/Day Years Used Date Smoking Tobacco: Never Smokeless Tobacco: Never Tobacco Cessation:Counseling Given: Not Answered Personal Safety Answer Date Recorded Have you ever been in or are you currently in a harmful physical or emotional relationship or is someone making you feel afraid or unsafe? Denies 09/16/2023 Comments No Sex and Gender Information Value Date Recorded Sex Assigned at Not on file Legal Sex Female 1:16 AM ELECTRICIAN APPRENTICE Gender Identity Not on file Sexual Orientation Not on file Obstetrics History Last Filed Vital Signs Vital Sign Reading Time Taken Comments Blood Pressure 155/88 08/31/2024 11:03 AM ELECTRICIAN APPRENTICE Pulse 74 08/31/2024 11:03 AM ELECTRICIAN APPRENTICE Temperature 36.2 C (97.2 F) 08/31/2024 11:03 AM ELECTRICIAN APPRENTICE Respiratory Rate 18 08/31/2024 11:03 AM ELECTRICIAN APPRENTICE Oxygen Saturation 98% 08/31/2024 11:03 AM ELECTRICIAN APPRENTICE Inhaled Oxygen Concentration - - Weight 92.7 kg (204 lb 6.4 oz) 08/31/2024 11:03 AM ELECTRICIAN APPRENTICE Height 167.6 cm (5' 6 ) 08/31/2024 11:03 AM ELECTRICIAN APPRENTICE Body Mass Index 32.99 08/31/2024 11:03 AM ELECTRICIAN APPRENTICE Plan of Treatment Health Maintenance Due Date Last Done Comments Depression Screening 1960 Hepatitis C Screening 1960 DTaP/Tdap/Td Vaccine (1 - Tdap) 1971 Hepatitis B Screening 1978 Regular Well Visit/Exam 18-64 1978 Zoster Vaccine (1 of 2) 2010 Breast Cancer Screening-Mammogram 12/25/2013 12/25/2012 Influenza Vaccine (#1) 2024 Colon Cancer Screening-Colonoscopy 08/02/2025 08/02/2015, 08/02/2015, 03/09/2010 Colon Cancer Screening-CT Colonography Discontinued 08/02/2015, 08/02/2015, 03/09/2010 Colon Cancer Screening-DNA Stool Discontinued 08/02/2015, 08/02/2015, 03/09/2010 Colon Cancer Screening-FIT Discontinued 08/02, 08/02/2015, 03/09/2010 Colon Cancer Screening-Sigmoidoscopy Discontinued 08/02/2015, 08/02/2015, 03/09/2010 Pneumococcal vaccine <65 Aged Out No longer eligible based on patient's age to complete this topic Procedures Procedure Name Priority Date/Time Associated Diagnosis Comments BASIC METABOLIC PANEL Routine 07/09/2024 9:37 AM ELECTRICIAN APPRENTICE Hypokalemia TSH W/REFL FT4 Routine 06/14/2024 8:58 AM ELECTRICIAN APPRENTICE COMPREHENSIVE METABOLIC PANEL Routine 06/14/2024 8:58 AM ELECTRICIAN APPRENTICE MAGNESIUM Routine 06/14/2024 8:58 AM ELECTRICIAN APPRENTICE LIPID PANEL Routine 06/14/2024 8:58 AM ELECTRICIAN APPRENTICE CBC WITH AUTO DIFFERENTIAL Routine 06/14/2024 8:58 AM ELECTRICIAN APPRENTICE COLONOSCOPY IMAGES 08/02/2015 SCREENING MAMMOGRAM 2D BILATERAL Routine 12/25/2012 1:28 PM CDT from Last 3 Months or Most Recently Relevant to Health Maintenance Results * Basic metabolic panel (07/09/2024 9:37 AM ELECTRICIAN APPRENTICE) Glucose 99 65 - 99 mg/dL [facility] Comment: Fasting reference interval BUN 21 7 - 25 mg/dL [facility] Creatinine 0.98 0.50 - 1.05 mg/dL [facility] eGFR 65 > OR = 60 mL/min/1.7 3m2 [facility] BUN/creat ratio SEE NOTE: 6 - 22 (calc) [facility] Comment: Not Reported: BUN and Creatinine are within reference range. Sodium 140 135 - 146 mmol/L [facility] Potassium, pl 4.3 3.5 - 5.3 mmol/L [facility] Chloride 105 98 - 110 mmol/L [facility] CO2 31 20 - 32 mmol/L [facility] Calcium 9.6 8.6 - 10.4 mg/dL [facility] Blood 07/09/2024 9:37 AM ELECTRICIAN APPRENTICE 07/09/2024 9:38 AM ELECTRICIAN APPRENTICE us Sebas Al MD LAB BLOOD ORDERABLES Final Result [facility] [address] [place] [address] * TSH W/REFL FT4 (06/14/2024 8:58 AM ELECTRICIAN APPRENTICE) TSH 1.03 0.40 - 4.50 mIU/L [facility] 06/14/2024 8:58 AM ELECTRICIAN APPRENTICE 06/14/2024 9:02 AM ELECTRICIAN APPRENTICE Narrative [facility] - 06/16/2024 2:16 AM ELECTRICIAN APPRENTICE FASTING:YES FASTING: YES us Sebas Al MD LAB BLOOD ORDERABLES Final Result [facility] [address] [place] [address] * CBC with auto differential (06/14/2024 8:58 AM ELECTRICIAN APPRENTICE) Pathologist [facility] WBC 7.7 3.8 - 10.8 Thousand/u L [facility] RBC, POC 4.43 3.80 - 5.10 Million/uL [facility] Hgb 12.7 11.7 - 15.5 g/dL [facility] Hct 38.5 35.0 - 45.0 % [facility] MCV 86.9 80.0 - 100.0 fL [facility] MCH 28.7 27.0 - 33.0 pg [facility] MCHC 33.0 32.0 - 36.0 g/dL [facility] Comment: For adults, a slight decrease in the calculated MCHC value (in the range of 30 to 32 g/dL) is most likely not clinically significant; however, it should be interpreted with caution in correlation with other red cell parameters and the patient's clinical condition. Rdw 13.1 11.0 - 15.0 % [facility] Platelets 174 140 - 400 Thousand/u L [facility] MPV 11.7 7.5 - 12.5 fL [facility] Neutrophils, abs 5,344 1,500 - 7,800 cells/uL [facility] Lymphocytes, abs 1,478 850 - 3,900 cells/uL [facility] Monocyte abs 678 200 - 950 cells/uL [facility] Eosinophils, abs 131 15 - 500 cells/uL [facility] Basophils, abs 69 0 - 200 cells/uL [facility] Neutrophils 69.4 % [facility] Lymphocyte pct 19.2 % [facility] Monocytes 8.8 % [facility] Eosinophils 1.7 % [facility] Basophils 0.9 % [facility] 06/14/2024 8:58 AM ELECTRICIAN APPRENTICE 06/14/2024 9:02 AM ELECTRICIAN APPRENTICE Narrative [facility] - 06/16/2024 2:16 AM ELECTRICIAN APPRENTICE FASTING:YES FASTING: YES Sebas Al MD LAB BLOOD ORDERABLES Final Result Performing Organization Address [facility] Co de Phone Number [facility] [address] [place] [address] * Magnesium (06/14/2024 8:58 AM ELECTRICIAN APPRENTICE) [facility] Magnesium 2.2 1.5 - 2.5 mg/dL [facility] 06/14/2024 8:58 AM ELECTRICIAN APPRENTICE 06/14/2024 9:02 AM ELECTRICIAN APPRENTICE Narrative [facility] - 06/16/2024 2:16 AM ELECTRICIAN APPRENTICE FASTING:YES FASTING: YES Sebas Al MD LAB BLOOD ORDERABLES Final Result Performing Organization Address [facility] de Phone Number KAS[facility] [address] [place] [address] * Lipid panel (06/14/2024 8:58 AM ELECTRICIAN APPRENTICE) Pathologist [facility] Cholesterol 156 <200 mg/dL [facility] HDL 51 > OR = 50 mg/dL [facility] Triglycerides 96 <150 mg/dL [facility] LDL 86 mg/dL (calc) [facility] Comment: Reference range: <100 Desirable range <100 mg/dL for primary prevention; <70 mg/dL for patients with CHD or diabetic patients with > or = 2 CHD risk factors. LDL-C is now calculated using the Agustina calculation, which is a validated novel method providing better accuracy than the Friedewald equation in the estimation of LDL-C. Jeramie GARNER et al. SHONDA. 2013;310(19): 9028-8373 (http://education.[employer]faq/JKI681) Chol/HDL ratio 3.1 <5.0 (calc) [facility] Non-HDL, (LDL+VLDL) 105 <130 mg/dL (calc) [facility] Comment: For patients with diabetes plus 1 major ASCVD risk factor, treating to a non-HDL-C goal of <100 mg/dL (LDL-C of <70 mg/dL) is considered a therapeutic option. 06/14/2024 8:58 AM ELECTRICIAN APPRENTICE 06/14/2024 9:02 AM ELECTRICIAN APPRENTICE Narrative [facility] - 06/16/2024 2:16 AM ELECTRICIAN APPRENTICE FASTING:YES FASTING: YES us Sebas Al MD LAB BLOOD ORDERABLES Final Result [facility] [address] [place] [address] * (ABNORMAL) Comprehensive metabolic panel (06/14/2024 8:58 AM ELECTRICIAN APPRENTICE) Pathologist [facility] Glucose 89 65 - 99 mg/dL [facility] Comment: Fasting reference interval BUN 20 7 - 25 mg/dL [facility] Creatinine 0.82 0.50 - 1.05 mg/dL [facility] eGFR 80 > OR = 60 mL/min/1.7 3m2 [facility] BUN/creat ratio SEE NOTE: 6 - 22 (calc) [facility] Comment: Not Reported: BUN and Creatinine are within reference range. Sodium 143 135 - 146 mmol/L [facility] Potassium, pl 3.3(L) 3.5 - 5.3 mmol/L [facility] Chloride 104 98 - 110 mmol/L [facility] CO2 33(H) 20 - 32 mmol/L [facility] Calcium 9.5 8.6 - 10.4 mg/dL [facility] Protein, sr 6.3 6.1 - 8.1 g/dL [facility] Albumin 4.6 3.6 - 5.1 g/dL [facility] GLOBULIN 1.7(L) 1.9 - 3.7 g/dL (calc) [facility] Alb/glob ratio 2.7(H) 1.0 - 2.5 (calc) [facility] Bilirubin, total 0.6 0.2 - 1.2 mg/dL [facility] Alk phos 63 37 - 153 U/L [facility] AST 14 10 - 35 U/L [facility] ALT (SGPT) 8 6 - 29 U/L [facility] 06/14/2024 8:58 AM ELECTRICIAN APPRENTICE 06/14/2024 9:02 AM ELECTRICIAN APPRENTICE Narrative [facility] - 06/16/2024 2:16 AM ELECTRICIAN APPRENTICE FASTING:YES FASTING: YES Sebas Al MD LAB BLOOD ORDERABLES Final Result Performing Organization Address City/State/[facility] Co de Phone Number [facility] [address] [facility] [place] [address] * COLONOSCOPY IMAGES (08/02/2015) Anatomical Region Laterality Modality Other Narrative 08/02/2015 Ordered by an unspecified provider. Historical Provider GI PROCEDURE ORDERABLES F inal Result * Screening Mammogram 2D Bilateral (12/25/2012 1:28 PM CDT) Anatomical Region Laterality Modality Breast Bilateral Mammography 12/25/2012 1:28 PM CDT Impressions 01/01/2013 10:54 AM CDT No mammographic evidence of malignancy. Recommend routine annual screening mammography. ASSESSMENT: BIRADS: 1 - NegativeA letter will be mailed to the patient with the results and recommendations. THIS IS AN ELECTRONICALLY VERIFIED REPORT 01/01/2013 9:18 AM: Zoe Aguilar M.D. Zoe Aguilar M.D. CANELO:[email or web address] 03:14 PM 05:38 PM [EOD] Narrative 01/01/2013 10:54 AM CDT EXAMINATION: Bilateral screening mammography HISTORY: Baseline screening mammogram. COMPARISON: None available. TECHNIQUE: Bilateral digital full field of view mammography was performed, with the aid of computer aided detection (CAD). FINDINGS: The breasts are composed of heterogeneously dense tissue, which may limit the sensitivity of mammography. No dominant mass, significant microcalcifications, or other findings are seen. Procedure Note Provider, MD Derrick - 11/21/2020 EXAMINATION: Bilateral screening mammography HISTORY: Baseline screening mammogram. COMPARISON: None available. TECHNIQUE: Bilateral digital full field of view mammography wasperformed, with the aid of computer aided detection (CAD). FINDINGS: The breasts are composed of heterogeneously dense tissue, whichmay limit the sensitivity of mammography. No dominant mass, significant microcalcifications, or other findings are seen. IMPRESSION: No mammographic evidence of malignancy. Recommend routine annualscreening mammography. ASSESSMENT: BIRADS: 1 - NegativeA letter will be mailed to the patientwith the results and recommendations. THIS IS AN ELECTRONICALLY VERIFIED REPORT 01/01/2013 9:18 AM: Zoe Aguilar M.D. Zoe Aguilar M.D. KL:[email or web address] 03:14 PM 05:38 PM [EOD] Clifford Shafer MD IMG MAMMO PROCEDURES Final Result from Last 3 Months or Most Recently Relevant to Health Maintenance Insurance MEDICARE SOLUTIONS MEDICARE SOLUTIONS Care Teams Anesthesia Director Relationship Specialty Start Date End Date Kavin Byers MD [address] [facility] [address] [address] PCP - General Family Medicine 07/22/24 Nya Lorenzo MD [address] [address] Nurse Epidemiologist Cardiovascular Disease 04/12/19
--- OUTSIDE RECORDS SUMMARY | 2024-09-10 02:06 | XMS_ITS | Referral Summary ---
Author Organization [facility] Address [address] [place] [id number] Care Team Providers Care Inspector Motor Vehicles Name Role Phone Nya Lorenzo MD Unavailable [phone] Kavin Byers MD Primary Care Provider Encounters Date Type Department Care Team Description 08/31/2024 11:00 AM FOOD COUNSELOR Office Visit [facility] Pulmonology [address] [place] [address] [address] [place] [phone] Vanessa Ga MD YEMI (obstructive sleep apnea) (Primary Dx); BMI 32.0-32.9,adult; Psychophysiological insomnia; Nonsmoker; Restless legs; Hypersomnia, unspecified 07/22/2024 9:00 AM FOOD COUNSELOR Office Visit [facility] Cardiology [address] [place] [phone] Sebas Al MD Primary hypertension (Primary Dx); MVP (mitral valve prolapse); Mixed hyperlipidemia; Palpitations; MR (congenital mitral regurgitation); Obesity (BMI 30-39.9) 06/16/2024 Telephone [facility] Cardiology [address] [place] [phone] Jaycee Arcos NP Test Results 06/16/2024 Telephone [facility] Cardiology [address] [place] [phone] Sebas Al MD Lab Results 06/14/2024 Orders Only [facility] Cardiology [address] [place] [phone] Sebas Al MD from Last 3 Months Allergies Active Allergy Reactions Criticality Noted Date [...] 4:40 PM CDT): Last BNP is normal Social History Tobacco Use Types Packs/Day Years [...] on file Legal Sex Female 1:16 AM FOOD COUNSELOR Gender Identity Not on file Sexual Orientation Not on file Last Filed Vital Signs Vital Sign Reading Time Taken Comments Blood Pressure 155/88 08/31/2024 11:03 AM FOOD COUNSELOR Pulse 74 08/31/2024 11:03 AM FOOD COUNSELOR Temperature 36.2 C (97.2 F) 08/31/2024 11:03 AM FOOD COUNSELOR Respiratory Rate 18 08/31/2024 11:03 AM FOOD COUNSELOR Oxygen Saturation 98% 08/31/2024 11:03 AM FOOD COUNSELOR Inhaled Oxygen Concentration - - Weight 92.7 kg (204 lb 6.4 oz) 08/31/2024 11:03 AM FOOD COUNSELOR Height 167.6 cm (5' 6 ) 08/31/2024 11:03 AM FOOD COUNSELOR Body Mass Index 32.99 08/31/2024 11:03 AM FOOD COUNSELOR Plan of Treatment Not on file Procedures Procedure Name Priority Date/Time Associated Diagnosis Comments BASIC METABOLIC PANEL Routine 07/09/2024 9:37 AM FOOD COUNSELOR Hypokalemia TSH W/REFL FT4 Routine 06/14/2024 8:58 AM FOOD COUNSELOR COMPREHENSIVE METABOLIC PANEL Routine 06/14/2024 8:58 AM FOOD COUNSELOR MAGNESIUM Routine 06/14/2024 8:58 AM FOOD COUNSELOR LIPID PANEL Routine 06/14/2024 8:58 AM FOOD COUNSELOR CBC WITH AUTO DIFFERENTIAL Routine 06/14/2024 8:58 AM FOOD COUNSELOR COLONOSCOPY IMAGES 08/02/2015 SCREENING MAMMOGRAM 2D BILATERAL Routine 12/25/2012 1:28 PM CDT from Last 3 Months or Most Recently Relevant to Health Maintenance Results * Basic metabolic panel (07/09/2024 9:37 AM FOOD COUNSELOR) Glucose 99 65 - 99 mg/dL [facility] [...] [facility] Blood 07/09/2024 9:37 AM FOOD COUNSELOR 07/09/2024 9:38 AM FOOD COUNSELOR Sebas Al MD LAB BLOOD ORDERABLES Final Result Performing Organization Address [facility] Co de Phone Number [facility] [address] [place] [address] * TSH W/REFL FT4 (06/14/2024 8:58 AM FOOD COUNSELOR) Pathologist [facility] TSH 1.03 0.40 - 4.50 mIU/L [facility] 06/14/2024 8:58 AM FOOD COUNSELOR 06/14/2024 9:02 AM FOOD COUNSELOR Narrative [facility] - 06/16/2024 2:16 AM FOOD COUNSELOR FASTING:YES FASTING: YES Sebas Al MD LAB BLOOD ORDERABLES Final Result Performing Organization Address [facility] de Phone Number [facility] [address] [place] [address] * CBC with auto differential (06/14/2024 8:58 AM FOOD COUNSELOR) Pathologist [facility] WBC 7.7 3.8 - 10.8 [...] % [facility] 06/14/2024 8:58 AM FOOD COUNSELOR 06/14/2024 9:02 AM FOOD COUNSELOR Narrative [facility] - 06/16/2024 2:16 AM FOOD COUNSELOR FASTING:YES FASTING: YES Sebas Al MD LAB BLOOD ORDERABLES Final Result Performing Organization Address City/[facility]/ZIP Co de Phone Number [facility] [address] [place] [address] * Magnesium (06/14/2024 8:58 AM FOOD COUNSELOR) Magnesium 2.2 1.5 - 2.5 mg/dL [facility] 06/14/2024 8:58 AM FOOD COUNSELOR 06/14/2024 9:02 AM FOOD COUNSELOR Narrative [facility] - 06/16/2024 2:16 AM FOOD COUNSELOR FASTING:YES FASTING: YES Sebas Al MD LAB BLOOD ORDERABLES Final Result [facility] [address] [address] [phone] * Lipid panel (06/14/2024 8:58 AM FOOD COUNSELOR) Cholesterol 156 <200 mg/dL [facility] [...] LDL-C. Jeramie GARNER et al. SHONDA. 2013;310(19): 0945-4071 (http://education.3rd Planet/faq/ZZX501) Chol/HDL ratio 3.1 <5.0 (calc) [facility] Non-HDL, (LDL+VLDL) 105 <130 mg/dL (calc) [facility] Comment: For patients with diabetes plus 1 major ASCVD risk factor, treating to a non-HDL-C goal of <100 mg/dL (LDL-C of <70 mg/dL) is considered a therapeutic option. 06/14/2024 8:58 AM FOOD COUNSELOR 06/14/2024 9:02 AM FOOD COUNSELOR Narrative [facility] - 06/16/2024 2:16 AM FOOD COUNSELOR FASTING:YES FASTING: YES us Sebas Al MD LAB BLOOD ORDERABLES Final Result [facility] [address] [address] [phone] * (ABNORMAL) Comprehensive metabolic panel (06/14/2024 8:58 AM FOOD COUNSELOR) Glucose 89 65 - 99 mg/dL [facility] [...] U/L [facility] 06/14/2024 8:58 AM FOOD COUNSELOR 06/14/2024 9:02 AM FOOD COUNSELOR Narrative [facility] - 06/16/2024 2:16 AM FOOD COUNSELOR FASTING:YES FASTING: YES us Sebas Al MD LAB BLOOD ORDERABLES Final Result [facility] [address] [address] [phone] * COLONOSCOPY IMAGES (08/02/2015) Anatomical Region Laterality Modality Other Narrative 08/02/2015 Ordered by an unspecified provider. us Historical Provider MD GI PROCEDURE ORDERABLES F inal Result * [...] AM: Zoe Aguilar M.D. Zoe Aguilar M.D. [email or web address] 03:14 PM 05:38 PM [EOD] Narrative 01/01/2013 [...] other findings are seen. Procedure Note Provider, Derrick, - 11/21/2020 EXAMINATION: Bilateral screening mammography HISTORY: [...] AM: Zoe Aguilar M.D. Zoe Aguilar M.D. KL:jw 03:14 PM 05:38 PM [EOD] Clifford Shafer MD IMG MAMMO PROCEDURES Final Result from Last 3 Months or Most Recently Relevant to Health Maintenance Insurance MED[employer]ARE [employer] MED[employer]ARE [employer] Care Teams Inspector Motor Vehicles Relationship Specialty Start Date End Date Kavin Byers MD [address] [facility] [address] [place] [address] PCP - General Family Medicine 1/16/25 Nya Lorenzo MD [address] [address] Shoe Stitcher Cardiovascular Disease 04/12/19
--- OUTSIDE RECORDS SUMMARY | 2024-09-10 02:06 | XMS_ITS | Clinical Summary ---
Author Organization [facility] Address [facility] [place] [address] Care Team Providers Care Steam Table Attendant Name Role Phone Unavailable Primary Care Provider Unavailabl e Social History Tobacco Use Types Packs/Day Years Used Date Smoking Tobacco: Never Assessed Comments Unknown Sex and Gender Information Value Date Recorded Sex Assigned at Not on file Legal Sex Female 7:10 PM CDT Gender Identity Not on file Sexual Orientation Not on file Plan of Treatment Health Maintenance Due Date Last Done Comments Cervical Cancer Screening Pa p Smear (Age 30 to 64) Every 3 Years 1960 Colorectal Cancer Screening Colonoscopy (10 Years) 1960 Annual Physical 1963 Hepatitis C 1978 DTaP, Tdap and Td Vaccines ( 1 - Tdap) 1979 Cervical Cancer Screening Pa p with HPV Testing (Age 30 to 64) Every 5 Years 1990 Cervical Cancer Screening with HPV 1990 Mammogram Screening 2000 Zoster Vaccines (1 of 2) 2010 COVID-19 Vaccine (2023-2 5 season) 2024 Influenza Adult (#1) 2024 RSV Immunization or 60+ Years (1 - 1-dose 75+ series) 2035 Meningococcal B Vaccine Aged Out No l onger eligible based on patient's age to complete this topic Meningococcal Vaccine Aged Out No delmy marc eligible based on patient's age to complete this topic Pneumococcal Vaccine: Pediat rics (0 to 5 Years) and At-Risk Patients (6 to 64 Years) Aged Out No longer eligible b ased on patient's age to complete this topic RSV Immunizations Under 20 Months Aged Out No longer eligible based on patient's age to complete this topic
--- OUTSIDE RECORDS SUMMARY | 2024-09-10 02:07 | XMS_ITS | Data Portability ---
Author Organization [facility] [employer] , [facility] Address [address] [place] [address] Assessment No assessment recorded. Plan of Treatment Reminders Order Date Submit Date Provider Last Modified By Organization Details Last Modified Time Details Appointments None recorded. Lab None recorded. Referral None recorded. Procedures None recorded. Surgeries None recorded. Imaging MAMMO, screening, digital, bilateral [address] Central Scheduling, [address] [place], [address], 3 11:57:39 bone density [address] Central Scheduling, [address] [place], [address], 3 11:57:39 MAMMO, screening, digital, bilateral 2020 021 [email or web address] Not available 2 16:42:00 Medication Orders Estrace 0.01% (0.1 mg/gram) vaginal cream 2022 023 [facility] [address], [place], [address], 3 10:20:59 clobetasol 0.05 % topical ointment 2022 023 [facility] [address], [place], [address], 3 10:22:11 valacyclovi r 500 mg tablet 2022 023 [facility] [address], [place], [address], 3 10:22:10 Valtrex 500 mg tablet 2020 [facility] [address], [place], [address], 16:17:13 Estrace 0.01% (0.1 mg/gram) vaginal cream 2020 [facility] [address], [place], [address], 16:17:14 clobetasol 0.05 % topical ointment 2020 [facility] [address], [place], [address], 16:17:12 Patient TargetsNo targets recorded. Patient Instructions Encounter Date Encounter Id Patient Instructions Last Modified By Organization Details Last Modified Time 03/05/2023 [id number] weight managemen t education Not available 03/05/2023 10:20:10 mammogram: about this test Not available 03/05/2023 10:20:10 Reason for Referral None Reported. Problems Name Problem SNOMED Code Status Onset Date Resolution Date Notes Provider Name and Address Organization Details Recorded Time Herpes simplex 69247579 Completed 201404/22/2015 Herpes simplex, without complica tion; Location : None Progress : Stable Added By: Sara Carrillo Add to Current Problems : YES ProblemS tatus: Resolve Not Available [facility] 21:36:42 Menopaus al symptom 29083228 Completed 201209/05/2013 Menopaus e; Location : None Progress : Stable Added By: Alina Michelle Add to Current Problems : NO ProblemS tatus: Resolve Not Available [facility] 21:16:58 Genital herpes simplex 23573869 Completed 201304/05/2020 Genital herpes, other; Progress : Stable Added By: Sara Carrillo Add to Current Problems : NO ProblemS tatus: Resolve Not Available [facility] 2 21:36:42 Hypothyr oidism 98764115 Completed 201202/04/2014 Low thyroid; Progress : Stable Added By: Amarilis William Add to Current Problems : NO ProblemS tatus: Resolve Not Available [facility] 2 21:16:58 Lichen sclerosu s et atrophic us Completed 201607/04/2021 Lichen sclerosu s et atrophic us; Severity : Moderate Progress : Stable Added By: Dejan Hunter Add to Current Problems : YES ProblemS tatus: Current Lichen sclerosu s; Location : None Severity : Moderate Progress : Stable Added By: Dejan Hunter Add to Current Problems : YES ProblemS tatus: Current Lily hernández, [employer] 1 14:48:28 Herpesvi jessika infectio n [id number] Completed 201307/04/2021 Genital herpes, other; Location : None Severity : Moderate Progress : Stable Added By: Sara Carrillo Add to Current Problems : YES ProblemS tatus: Current Herpesvi ral infectio n of other urogenit al tract; Severity : Moderate Progress : Stable Added By: Sara Carrillo Add to Current Problems : YES ProblemS tatus: Current Lily hernández, [employer] [place] 1 14:48:25 Sampling of vagina for Papanico laou smear Active 2018 Encounte r for gynecolo gical examinat ion (general ) (routine ) without abnormal findings ; Progress : Stable Added By: Kimberley Dunn Add to Current Problems : YES ProblemS tatus: Current Not Available [facility] 2 21:36:41 Breast neoplasm screenin g NOS Completed 201707/17/2018 Screenin g mammogra m - other; Location : None Severity : Moderate Progress : Stable Added By: Lily Hernández Add to Current Problems : YES ProblemS tatus: Resolve Screenin g mammogra m - other; Severity : Moderate Progress : Stable Added By: Viraj Sherwood Add to Current Problems : NO ProblemS tatus: Resolve; Start Date : 02/09/20 14 Not Available [facility] 1 19:34:58 Localize d sclerode rma [id number] Completed 201604/05/2020 Lichen sclerosu s; Progress : Stable Added By: Dejan Hunter Add to Current Problems : NO ProblemS tatus: Resolve Not Available [facility] 2 21:36:42 Screenin g mammogra phy Active 2018 Screenin g mammogra m - other; Location : None Progress : Stable Added By: Viraj Sherwood Add to Current Problems : YES ProblemS tatus: Resolve; Start Date : 02/22/20 15 Scree chao mammogra m - other; Location : None Progress : Stable Added By: Ana Paula Jones Add to Current Problems : NO ProblemS tatus: Resolve; Start Date : 02/09/20 14 Encou nter for screenin g mammogra m for malignan t neoplasm of breast; Progress : Stable Added By: Dejan Hunter Add to Current Problems : YES ProblemS tatus: Current Screenin g mammogra m - other; Location : None Progress : Stable Added By: Lily Hernández Add to Current Problems : YES ProblemS tatus: Resolve; Start Date : 05/18/20 18 Scremargareth chao mammogra m - other; Location : None Progress : Stable Added By: Shania Lee Add to Current Problems : YES ProblemS tatus: Resolve; Start Date : 03/06/20 16 Not Available [facility] 2 21:16:58 Screenin g for osteopor osis Active 2018 Encounte r for screenin g for osteopor osis; Progress : Stable Added By: Dejan Hunter Add to Current Problems : YES ProblemS tatus: Current Not Available [facility] 2 21:36:41 Problem Notes None recorded. Procedures Surgical History Date Name Laterality Status Provider Name and Address Organization Details Recorded Time 07/07/19 06 Most Recent [facility] [email or web address] [facility] 03/05/2023 09:55:01 hysterectomy completed [facility] 05/28/2021 10:16:20 Imaging Results None recorded. Procedure Notes None recorded. Medical Equipment None Reported. Allergies Allergen ID Allergen Name Allergen Category Reaction Reaction Severity Criticality Documentation Date Start Date Code Code System Note Provider Name and Address Organization Details Recorded Time 290351 tramadol Not available Not available Not available Not available 04/27/20212012 61578 RxNorm Sever ity: Moder ate; Not Available Not Available Not Available 622589 acetamino phen / hydrocodo ne medicatio n Not available Not available Not available 04/27/20212012 86935 2 RxNorm Sever ity: Moder ate; Not Available Not Available Not Available 021202 Tylenol with Codeine medicatio n Not available Not available Not available 04/27/20212012 54021 6 RxNorm Sever ity: Moder ate; Not Available Not Available Not Available 848339 naproxen medicatio n Not available Not available Not available 04/27/20212012 7258 RxNorm Sever ity: Moder ate; Not Available Not Available Not Available Medications Name Sig Start Date Stop Date Status Note LastModified by Organization Details LastModified Time cyclobenz aprine 10 mg tablet TAKE 1 TABLET BY MOUTH ONCE DAILY IN THE EVENING active Not Available Not Available No t Available prednison e 10 mg tablet TAKE 4 TABLETS BY MOUTH ONCE DAILY FOR 3 DAYS THEN 3 ONCE DAILY FOR 3 DAYS THEN 2 ONCE DAILY FOR 3 DAYS THEN 1 ONCE DAILY FOR 3 DAYS active Not Available Not Available No t Available lisinopri l 20 mg-hydroc hlorothia zide 12.5 mg tablet TAKE 1 TABLET BY MOUTH ONCE DAILY active Not Available Not Available No t Available ofloxacin 0.3 % eye drops INSTILL 1 DROP THREE TIMES DAILY INTO AFFECTED EYE DIRECTED BEGINNIN G 2 DAYS PRIOR TO SURGERY AND CONTINUI NG FOR 1 WEEK AFTER. active Not Available Not Available No t Available estradiol 0.05 mg/24 hr weekly transderm al patch Apply 1 patch(es ) to lower abdomen 2 times weekly 06/02 completed Estradio l 0.05mg Transder mal Patch RxNorm: 602523 Allow Substitu tion: True Refill Denied: No Not Available Not Available Not Available gabapenti n 400 mg capsule TAKE 2 CAPSULES BY MOUTH TWICE DAILY active Not Available Not Available No t Available atenolol 25 mg tablet Take 1 tablet(s ) by mouth daily 2012 active Atenolol 25 mg oral tablet RxNorm: 969002 Allow Substitu tion: True Refill Denied: No Refill DateOccu rred: 12/05/19 13 Edited by: debi(Mishel Warner ) on 05/24/20 19 Stopped by: debi(Mishel Warner ) on Not Available Not Available Not Available amlodipin e 5 mg tablet TAKE 1 TABLET BY MOUTH ONCE DAILY active Not Available Not Available No t Available valacyclo vir 500 mg tablet Take 1 tablet by mouth once daily 2023 active Not Available Not Available Not Avai lable sulfameth oxazole 800 mg-trimet hoprim 160 mg tablet active Not Available Not Available Not Available tramadol 50 mg tablet TAKE 1 TABLET BY MOUTH EVERY 8 HOURS NEEDED FOR PAIN active Not Available Not Available No t Available triamcino lone acetonide 0.1 % topical cream apply to affected area(s) 2 times per day for 1 week for flare ups and then use twice per week for maintena nce active triamcin olone acetonid e 0.1 % Topical Cream RxNorm: 3886038 Allow Substitu tion: True Refill Denied: No Edited by: Dejan Chaney) on 04/05/20 20 Stopped by: Dejan Chaney) on Not Available Not Available Not Available simvastat in 40 mg tablet TAKE 1 TABLET BY MOUTH ONCE DAILY active Not Available Not Available No t Available ketorolac 0.5 % eye drops INSTILL ONE DROP INTO OPERATVI E EYE THREE TIMES DAILY TWO DAYS BEFORE SURGERY active Not Available Not Available No t Available oxycodone -acetamin ophen 5 mg-325 mg tablet active Not Available Not Available Not Available amitripty line 25 mg tablet Take 2 tablet(s ) by mouth at bedtime 03/05 completed amitript yline 25 mg oral tablet RxNorm: 559257 Allow Substitu tion: True Refill Denied: No Refill DateOccu rred: 12/05/19 13 Edited by: debi(Mishel Warner ) on 05/24/20 19 Stopped by: debi(Mishel Warner ) on Not Available Not Available Not Available prednisol one acetate 1 % eye drops,alo pension INSTILL 1 DROP THREE TIMES DAILY INTO AFFECTED EYE DIRECTED DARIEN Johnson AFTER SURGERY AND MASON CULLEN FOR 3 WEEKS. active Not Available Not Available No t Available amlodipin e 10 mg tablet TAKE 1 TABLET BY MOUTH ONCE DAILY active Not Available Not Available No t Available benzonata te 100 mg capsule TAKE 2 CAPSULES BY MOUTH TWICE DAILY NEEDED FOR COUGH 03/05 completed Not Available Not Available Not Available hydrocodo ne 7.5 mg-acetam inophen 325 mg tablet active Not Available Not Available Not Available metoprolo l succinate ER 25 mg tablet,ex tended release 24 hr TAKE 1 TABLET BY MOUTH ONCE DAILY active Not Available Not Available No t Available clobetaso l 0.05 % topical ointment apply pea size amount to area bid x 2 weeks then qd x 2 weeks and then twiice/w [facility] [employer] [place] active Not Available Not Available No t Available azelastin e 137 mcg (0.1 %) nasal spray USE 1 SPRAY(S) IN EACH NOSTRIL TWICE DAILY active Not Available Not Available No t Available estradiol 0.01% (0.1 mg/gram) vaginal cream INSERT 1 GRAM VAGINALL Y ONCE A WEEK AND A PEA SIZE AMOUNT TO THE LABIA DAILY active Not Available Not Available No t Available zolpidem 10 mg tablet TAKE 1 TABLET BY MOUTH EVERY DAY AT BEDTIME NEEDED FOR INSOMNIA active Not Available Not Available No t Available benazepri l 10 mg tablet TAKE 1 TABLET BY MOUTH ONCE DAILY active Not Available Not Available No t Available ondansetr on 4 mg disintegr ating tablet active Not Available Not Available Not Available fluticaso ne propionat e 50 mcg/actua tion nasal spray,alo [employer] USE 1 SPRAY(S) IN EACH NOSTRIL ONCE DAILY active Not Available Not Available No t Available doxycycli ne hyclate 100 mg tablet active Not Available Not Available Not Available estradiol 12/04 completed Estradio l 0.05mg Transder mal Patch RxNorm: 861686 Allow Substitu tion: True Refill Denied: No Not Available Not Available Not Available garlic 2016 active garlic Allow Substitu tion: True Refill Denied: No Refill DateOccu rred: 11/29/19 17 Edited by: Dejan Chaney) on 04/27/20 19 Stopped by: Dejan Chaney) on Not Available Not Available Not Available Calcium 600 2016 active Calcium 600 Allow Substitu tion: True Refill Denied: No Refill DateOccu rred: 11/29/19 17 Edited by: Dejan Chaney) on 04/27/20 19 Stopped by: Dejan Chaney) on Not Available Not Available Not Available magnesium chloride 2016 active Magnesiu m Chloride Allow Substitu tion: True Refill Denied: No Refill DateOccu rred: 11/29/19 17 Edited by: Dejan Chaney) on 04/27/20 19 Stopped by: Dejan Chaney) on Not Available Not Available Not Available Vitamin D3 2016 active Vitamin D3 Allow Substitu tion: True Refill Denied: No Refill DateOccu rred: 11/29/19 17 Edited by: Dejan Chaney) on 04/27/20 19 Stopped by: Dejan Chaney) on Not Available Not Available Not Available Valtrex Take 1 tablet by mouth QD 03/25 completed Valtrex 500mg Tablet RxNorm: 858672 Allow Substitu tion: True Refill Denied: No Not Available Not Available Not Available apple cider vinegar 04/05 completed apple cider vinegar Allow Substitu tion: True Refill Denied: No Refill DateOccu rred: 11/29/19 17 Edited by: Kimberley López ) on 04/05/20 20 Stopped by: Kimberley López ) on 04/05/20 20 Not Available Not Available Not Available hydrochlo rothiazid e 12.5 mg tablet TAKE 1 TABLET BY MOUTH ONCE DAILY active Not Available Not Available No t Available Xarelto 10 mg tablet active Not Available Not Available Not Available Nucynta ER 50 mg tablet,ex tended release PRN 03/05 completed Nucynta ER 50 mg oral Tablet, Extended Release 12 hr RxNorm: 0006124 Allow Substitu tion: True Refill Denied: No Refill DateOccu rred: 12/05/19 13 Edited by: Mishel Cleary ) on 05/24/20 19 Stopped by: debi(Mishel Warner ) on Not Available Not Available Not Available Loratadin e-D 5 mg-120 mg tablet,ex tended release 12 hr TAKE 1 TABLET BY MOUTH EVERY 12 HOURS 03/05 completed Not Available Not Available Not Available Vitals Date Recorded Body height Body mass index (BMI) Body weight Body temperature Systolic blood pressure Diastolic blood pressure Provider Name and Address Organization Details Last Updated DateTime 1 165.1 cm 31.4 kg/m2 47967.2 4 g 98 [degF] 124 mm[Hg] 80 mm[Hg] Lily Hernández [employer] 1 14:53:00 Date Recorded Body height Body mass index (BMI) Body weight Body temperature Systolic blood pressure Diastolic blood pressure Provider Name and Address Organization Details Last Updated DateTime 3 165.1 cm 31.3 kg/m2 59165.3 7 g 97.4 [degF] 122 mm[Hg] 84 mm[Hg] Leyla Whaley [employer] [facility] 3 09:57:38 Social History Question Answer Notes LastModified by Organizat ion Details LastModified Time Tobacco Smoking Status Former Smoker Leyla Whaley [facility] [employer] [facility] 03/05/2023 09:55:45 What Is Your Level Of Alcohol Consumption? None Information not available 03/05/2023 Are You Blind Or Do You Have Difficulty Seeing? No [email or web address] Information not available 03/05/2023 Are You Deaf Or Do You Have Serious Difficulty Hearing? No [email or web address] Information not available 03/05/2023 What Type Of Diet Are You Following? REGULAR Information not available 03/05/2023 How Many Children Do You Have? 3 [email or web address] Information not available 05/28/2021 What Is Your Relationship Status? Information not available 05/28/2021 Are You Sexually Active? Yes [email or web address] Information not available 05/28/2021 Do You Use Any Illicit Or Recreational Drugs? No [email or web address] Information not available 03/05/2023 Do You Or Have You Ever Used Any Other Forms Of Tobacco Or Nicotine? No [email or web address] Information not available 03/05/2023 Sex: Unknown Functional Status Question Answer Note LastModified by Organizat ion Details LastModified Time What is your exercise level? Occasional [email or web address] Information not available 03/05/2023 Mental Status None recorded. Family History Relationship Description Onset Age of this Age Resolved Age Notes LastModified by Organization Details LastModified Time Father No current problems or disability [email or web address] Not available 03/05 09:55:16 Mother No current problems or disability [email or web address] Not available 03/05 09:55:16 Medical History Condition Response High Blood Pressure Y High Cholesterol Y Heart Disease Y Gynecological History Statement/Question Response If Post Menopausal, Age at Menopause 34 Date of Last Pap Smear Most Recent Mammogram 07/07/2005 Current Control Method Hysterectom y Age at Menarche 13 Obstetrics History GPAL:G 3 P 0 3 0 3 Type Value Premature 3 Living 3 Total 3 Past Encounters Encounter ID Performer Location Encounter Start Date Encounter Closed Date Diagnosis/Indication Diagnosis SNOMED-CT Code Diagnosis ICD10 Code Diagnosis Note [id number] Dejan Hunter MD [facility] [address] [place] [address] 07/04/2021 14:11:55 08/09/2021 08:36:14 Gynecologic examination 61519757 Z01.419 Screening for malignant neoplasm of breast 283564916 Z12.39 Lichen sclerosus 5781269 01 L90.0 COUNSELING was provided today regarding the following topics: healthy eating habits. Patient education given on weight management . and post-menop ausal hormone therapy risks/bene fits reviewed. Risks reviewed include possible VTE, NM, stroke, and breast cancer. Alternate therapy reviewed to control symptoms as well as behavioral changes, such as dressing in multiple layers. . discussed clobetasol ointment and to take twice per day x 2 weeks and daily x 2 week and then twice per week, also discussed need for continuous management and she will most likely ALWAYS have to use ointment as well as some emolient like crisco or coconut oil FOLLOW-UP: Schedule a follow-up visit in 2 months. to see us in 1-2 months . Atrophic vaginitis 81615 000 N95.2 estrace cream pea size amount ot ooutside labia 3 times per week as well as over the counter hydrocorti sone OINTMENT pea size amount 3 times a week and may mix the two and prometrium daily 100mg or days 1-12 every month or even every other month to prevent stimulatio n to the uterus and we will have you do 1/2 tablet estradiol 0.5mg tabs vaginally 1 to 2 times per week Genital he rpes simplex 64791705 A60.9 [id number] Dejan Hunter MD [facility] [address] [place] [address] 03/05/2023 09:42:22 03/05/2023 12:07:06 Gynecologic examination 81400548 Z01.89 y.o. here for annual exam.- Pap up to date from , discussed natural course of HPV infection, no new exposures. Plan to repeat cotesting in years.- Routine labs done with PCP- Mammo last year WNL, discussed different guideline recommendoscar saavedra, pt without family hx, would like to proceed with q2yr screening, repeat next year // rx provided- Colonoscop y done, can continue q10 years screens- DEXA at age 65 or after 50 if you have risk factors for osteoporos is- Depression screen NEG- BMI counseling , diet and exercise reviewed- RTO for annual or PRN Screening for cancer 158 85201 Z19.1 Screening for malignant neoplasm of breast 294029309 Z12.31 Screening for osteoporosis 122117339 Z13.820 Screening for cardiovascular system disease 090335083 Z13.6 Diabetes m ellitus screening 392310007 Z13.1 Depression screening 171 417904 Z13.31 Atrophic vaginitis 72458 000 N95.2 estrace cream pea size amount ot ooutside labia 3 times per week as well as over the counter hydrocorti sone OINTMENT pea size amount 3 times a week and may mix the two and prometrium daily 100mg or days 1-12 every month or even every other month to prevent stimulatio n to the uterus and we will have you do 1/2 tablet estradiol 0.5mg tabs vaginally 1 to 2 times per week Lichen sclerosus 2488474 01 L90.0 COUNSELING was provided today regarding the following topics: healthy eating habits. Patient education given on weight management . and post-menop ausal hormone therapy risks/bene fits reviewed. Risks reviewed include possible VTE, NM, stroke, and breast cancer. Alternate therapy reviewed to control symptoms as well as behavioral changes, such as dressing in multiple layers. . discussed clobetasol ointment and to take twice per day x 2 weeks and daily x 2 week and then twice per week, also discussed need for continuous management and she will most likely ALWAYS have to use ointment as well as some emolient like crisco or coconut oilFOLLOW- UP: Schedule a follow-up visit in 2 months. to see us in 1-2 months . Genital he rpes simplex 81421111 A60.9 Health Concerns Section Related Observation LastModified by Organization Detai ls LastModified Time None Recorded Concern Status LastModified by Organization Details LastModified Time None Recorded Advance Directives Directive None Recorded Payers Encounter Date Sequence Insurance Name Policy Number Policy Morel Covered Member ID Morel Member ID Guarantor Name 07/04/2021 1 [facility] (MEDICARE REPLACEMENT/A DVANTAGE - PPO) [id number] Mary Diane [id number] Mary Diane 03/05/2023 1 [facility] (MEDICARE REPLACEMENT/A DVANTAGE - PPO) [id number] Mary Diane [id number] Mary Diane Notes Date Note Type Note Provider Name and Address Organization Details Recorded Time 07/04/2021 text/html Annual GYNReport ed bypatient.History: no gynecologic complaints Urinary symptoms:No hematuria; No incontinence Vulva:No genital lesion Vagina:Normal vaginal discharge Breast:No breast pain; No breast lump Menopausal Symptoms:No menopausal symptoms Psychological symptoms:No depression; No anxiety Preventive measures:Encourage self breast examination; Encourage regular exercise; Needs to schedule mammogram Mary here for annual well women exam. She is post hysterectomy Dejan Hunter MD [address] [place] [address], [phone], [facility] [employer] [place] 08/08/2021 22:58:10 03/05/2023 text/html Pt is here today for annual. Pt stated she was told she didn't need a pap any more. Pt declines STD screening and blood work. Pt denies any complaints or concerns at this time. Dejan Hunter MD [address] [place] [address], [phone], [facility] [employer] [facility] 03/05/2023 10:27:06 OBGyn Episode No OBEpisode recorded.
[2024-09-10 13:15] VITALS: BP 169/82; PULSE 65; RESP 18; TEMP 36.1; O2SAT 99; BMI 31.8
--- NOTE | 2024-09-10 13:27 | P.PNAN_ITS ---
Anes - Initial Pre Proc Eval Procedure: Operation Date: 09/10/24 14:00 Proposed Procedures p Colonoscopy - Shaun Daugherty MD Date/Time: 09/10/24 13:27 Surgeon: Shaun Daugherty MD Pre Op Diagnosis: Fecal smearing, Chronic idiopathic constipation Patient Data Age: 64 Gender: F Height: 1.68 m Weight: 90.9 kg Allergies Allergy/AdvReac Type Severity Reaction Status Date / Time naproxen (From Naprosyn) AdvReac Severe bleeding Verified 09/10/24 13:23 ulcer Home Medications ?Medication ?Instructions ?Recorded ?Confirmed ?Type metoprolol succinate 25 mg 25 mg PO DAILY 02/23/20 09/10/24 History tablet,extended release 24 hr amlodipine 10 mg tablet 10 mg PO DAILY 09/23/23 09/10/24 History antiarthritic combination no.2 900 900 mg PO DAILY 12/11/23 09/10/24 History mg tablet (glucosamine-chondroitin) calcium 600 mg-D3 800 unit-mag11 1 tablet PO DAILY 12/11/23 09/10/24 History 50 ya-yfvt-uapeee-antonnio-s.borat tablet (Caltrate 600-D Plus Minerals) turmeric 400 mg capsule 400 mg PO DAILY 12/11/23 09/10/24 History vitamin E (dl, acetate) 180 mg 180 mg PO DAILY 12/11/23 09/10/24 History (400 unit) capsule clobetasol 0.05 % topical ointment 1 applic topical QHS PRN vaginal 04/30/24 09/07/24 Rx itchiness #60 grams estradiol 0.01% (0.1 mg/gram) 1 g vaginal WEEKLY #42.5 grams 04/30/24 09/07/24 Rx vaginal cream (Estrace) simvastatin 40 mg tablet 40 mg PO DAILY #90 tabs 04/30/24 09/10/24 Rx methylnaltrexone 150 mg tablet 150 mg Tablet#2 Samples 08/30/24 09/10/24 Sample (Relistor) cyclobenzaprine 10 mg tablet 10 mg PO HS PRN muscle spasm #90 09/03/24 09/07/24 Rx tabs gabapentin 400 mg capsule See Rx Instructions .Route 09/03/24 09/10/24 Rx .COMPLEX #360 caps valacyclovir 500 mg tablet 500 mg PO DAILY #90 tabs 09/03/24 09/10/24 Rx zolpidem 10 mg tablet 10 mg PO QHS #30 tabs 09/03/24 09/10/24 Rx prednisone 10 mg tablet 10 mg PO BID 10 days #20 tabs 09/07/24 09/10/24 Rx Patient hx anesthesia problems: none Family hx anesthesia problems: none Results Review: All pre-operative results and documents have been reviewed as part of the pre- operative evaluation. [facility] Past Medical History Medical History Sebaceous cyst Knee pain Headaches, cluster Spine pain, cervical Acute back pain Leg cramps Sinusitis Establishing care with new doctor, encounter for Lumbar radiculopathy, chronic Degenerative arthritis of lumbar spine Joint pain in both hands Chronic insomnia Hypertension Chronic pain syndrome Degenerative disc disease, cervical Mixed hyperlipidemia Primary insomnia Eye exam normal Surgical History Surgical History Status post total hip replacement, right Hx of foot surgery H/O: hysterectomy Family History Family History Father Hypertension Cancer Mother Hypertension Depression CHF (congestive heart failure) Dementia Sibling Diabetes mellitus Heart disease Grandparent Skin cancer Sibling , hit and run crash Acute myocardial infarction Social History Social History Social History: Patient is on disability due to chronic back pain, she is and has 3 kids with 1 child still living at home. She denies any history of smoking, alcohol, or recreational drugs. Smoking status: Never smoker Second hand tobacco smoke exposure: No Alcohol intake: never Substance use: never Substance use type: does not use Current Housing: Decline to Answer Concerned About Future Housing: Decline to Answer Difficulty Paying Gas/Electric Bills: Decline to Answer Difficulty Paying for Meds: Decline to Answer Currently Unemployed: Decline to Answer Education: Decline to Answer Difficulty w/ Childcare or Family Care: Decline to Answer Living arrangements: with family Additional living arrangements comments: Occupation/Education: unemployed Additional occupation/education comments: Disability Gender identity (if verbalized by the patient): Female Sexual Orientation (if Verbalized by the Patient): Straight or Heterosexual Spiritual care concerns: No Anes - Eval Final PreProcedure Day of Procedure 09/10/24 13:27 Patient weight: obese Lungs: normal air movement Airway: Mallampati scale class II Neurological: alert and oriented Last oral intake: >/= 8 hours ASA classification: III Emergent: no Anesthetic plan: proceed Anesthesia type and monitoring: general GIVS and standard monitoring Results Review: All pre-operative results and documents have been reviewed as part of the pre- operative evaluation. HTN, hyperlipidemia, severe YEMI, hx of restless leg syndome. Informed Consent: The patient's anesthetic plan and its attendant risks and benefits were discussed with the patient/family/POA. Questions were solicited and answers provided to the satisfaction of the patient/family/POA.
[2024-09-10] MEDS: LACTATED RINGERS 1,000 ML 150 ML IV CONT (13:37)
--- NOTE | 2024-09-10 14:58 | PM.IMHP ---
H&P: HPI History of Present Illness Date/Time: 09/10/24 14:58 Chief Complaint: Screening colonoscopy Narrative: This is the patient's 2nd colonoscopy after 10 years. There are no GI symptoms and there is no family history of colorectal cancer. Review of Systems Review of Systems: All systems reviewed & are unremarkable except as noted in HPI and below PMFSH Past Medical History Medical History Sebaceous cyst Knee pain Headaches, cluster Spine pain, cervical Acute back pain Leg cramps Sinusitis Establishing care with new doctor, encounter for Lumbar radiculopathy, chronic Degenerative arthritis of lumbar spine Joint pain in both hands Chronic insomnia Hypertension Chronic pain syndrome Degenerative disc disease, cervical Mixed hyperlipidemia Primary insomnia Eye exam normal Surgical History Surgical History Status post total hip replacement, right Hx of foot surgery H/O: hysterectomy Family History Family History Father Hypertension Cancer Mother Hypertension Depression CHF (congestive heart failure) Dementia Sibling Diabetes mellitus Heart disease Grandparent Skin cancer Sibling , hit and run crash Acute myocardial infarction Social History Social History Social History: Patient is on disability due to chronic back pain, she is and has 3 kids with 1 child still living at home. She denies any history of smoking, alcohol, or recreational drugs. Smoking status: Never smoker Second hand tobacco smoke exposure: No Alcohol intake: never Substance use: never Substance use type: does not use Current Housing: Decline to Answer Concerned About Future Housing: Decline to Answer Difficulty Paying Gas/Electric Bills: Decline to Answer Difficulty Paying for Meds: Decline to Answer Currently Unemployed: Decline to Answer Education: Decline to Answer Difficulty w/ Childcare or Family Care: Decline to Answer Living arrangements: with family Additional living arrangements comments: Occupation/Education: unemployed Additional occupation/education comments: Disability Gender identity (if verbalized by the patient): Female Sexual Orientation (if Verbalized by the Patient): Straight or Heterosexual Spiritual care concerns: No Meds Home Medications and Allergies Home Medications ?Medication ?Instructions ?Recorded ?Confirmed ?Type metoprolol succinate 25 mg 25 mg PO DAILY 02/23/20 09/10/24 History tablet,extended release 24 hr amlodipine 10 mg tablet 10 mg PO DAILY 09/23/23 09/10/24 History antiarthritic combination no.2 900 900 mg PO DAILY 12/11/23 09/10/24 History mg tablet (glucosamine-chondroitin) calcium 600 mg-D3 800 unit-mag11 1 tablet PO DAILY 12/11/23 09/10/24 History 50 fy-eqfp-vflhcx-antonino-s.borat tablet (Caltrate 600-D Plus Minerals) turmeric 400 mg capsule 400 mg PO DAILY 12/11/23 09/10/24 History vitamin E (dl, acetate) 180 mg 180 mg PO DAILY 12/11/23 09/10/24 History (400 unit) capsule clobetasol 0.05 % topical ointment 1 applic topical QHS PRN vaginal 04/30/24 09/07/24 Rx itchiness #60 grams estradiol 0.01% (0.1 mg/gram) 1 g vaginal WEEKLY #42.5 grams 04/30/24 09/07/24 Rx vaginal cream (Estrace) simvastatin 40 mg tablet 40 mg PO DAILY #90 tabs 04/30/24 09/10/24 Rx methylnaltrexone 150 mg tablet 150 mg Tablet#2 Samples 08/30/24 09/10/24 Sample (Relistor) cyclobenzaprine 10 mg tablet 10 mg PO HS PRN muscle spasm #90 09/03/24 09/07/24 Rx tabs gabapentin 400 mg capsule See Rx Instructions .Route 09/03/24 09/10/24 Rx .COMPLEX #360 caps valacyclovir 500 mg tablet 500 mg PO DAILY #90 tabs 09/03/24 09/10/24 Rx zolpidem 10 mg tablet 10 mg PO QHS #30 tabs 09/03/24 09/10/24 Rx prednisone 10 mg tablet 10 mg PO BID 10 days #20 tabs 09/07/24 09/10/24 Rx Allergies Allergy/AdvReac Type Severity Reaction Status Date / Time naproxen (From Naprosyn) AdvReac Severe bleeding Verified 09/10/24 13:23 ulcer Vital Signs Vital Signs - 24 hr 09/10/24 13:15 Temperature 96.9 F L Pulse Rate 65 Respiratory Rate 18 Blood Pressure 169/82 H Pulse Oximetry 99 Oxygen Delivery Room Air Exam Const: General: cooperative and healthy appearing Resp: Effort & Inspection: normal respiratory effort and able to speak in complete sentences Auscultation: clear to auscultation bilaterally Cardio: Rate: regular rate Rhythm: regular rhythm GI: Inspection: normal to inspection GI Palp: No No hepatosplenomegaly present Auscultation: normal bowel sounds Rectal Exam: deferred Skin: General skin exam: normal color Psych: Appearance: grossly normal Mental Status: mental status grossly normal Assessment and Plan Assessment and plan (1) Encounter for screening colonoscopy: Code(s): Z12.11 - Encounter for screening for malignant neoplasm of colon Status: Acute Assessment and Plan: The patient is deemed a good candidate for the procedure. Consent signed. Will proceed.
[2024-09-10 15:30] VITALS: BP 138/88; PULSE 60; RESP 17; O2SAT 100
[2024-09-10 15:40] VITALS: BP 151/89; PULSE 58; RESP 20; O2SAT 99
[2024-09-10 15:50] VITALS: BP 155/87; PULSE 57; RESP 15; O2SAT 100
== END 2024-09-10 16:07 | disposition home or self-care (01) ==
PROVIDERS: PCP Family Medicine; Referring Provider Nurse Practitioner Family; Visit Provider Internal Medicine Gastroenterology
PROC: 0DJD8ZZ Inspection of Lower Intestinal Tract, Via Natural or Artificial Opening Endoscopic (ICD-10-PCS; CPT 45378; principal; 2024-09-10 14:00)
DX: Z12.11 Encounter for screening for malignant neoplasm of colon (principal); K51.40 Inflammatory polyps of colon without complications; I10 Essential (primary) hypertension; E78.2 Mixed hyperlipidemia; M54.16 Radiculopathy, lumbar region; M47.896 Other spondylosis, lumbar region; F51.04 Psychophysiologic insomnia; G89.4 Chronic pain syndrome; M50.30 Other cervical disc degeneration, unspecified cervical region; E66.9 Obesity, unspecified; Z68.31 Body mass index [BMI] 31.0-31.9, adult; Z79.52 Long term (current) use of systemic steroids; Z98.890 Other specified postprocedural states; Z84.0 Family history of diseases of the skin and subcutaneous tissue; Z82.49 Family history of ischemic heart disease and other diseases of the circulatory system
CPT/HCPCS: 45385; 88305; J2003; J2704; J7120

== ENCOUNTER 2024-10-06 07:35 | Outpatient (CLI) | payer MEDICARE, SELFPAY ==
--- NOTE | ~2024-10-06 | MM_ITS ---
EXAMINATION: MM screening harjit BI w queenie HISTORY: Screening TECHNIQUE: Craniocaudal and mediolateral oblique 3-D tomosynthesis images were obtained and synthetic 2-D images were generated. CAD analysis was submitted and interpreted. COMPARISON: Comparison to multiple prior studies sequentially, with oldest reviewed study dated 04/04. BREAST PARENCHYMAL COMPOSITION: Not dense: There are scattered areas of fibroglandular density. FINDINGS: There is a developing nodular asymmetries centrally in the right breast on CC view, middle third. There is developing asymmetry in the upper outer quadrant of the left breast, middle third. IMPRESSION: 1. Developing bilateral breast asymmetries. 2. Additional mammographic views and possible breast ultrasound are recommended. BI-RADS Category 0: Incomplete: Needs additional imaging evaluation. Reviewed, dictated and finalized at location A. IMPRESSION: 1. Developing bilateral breast asymmetries. 2. Additional mammographic views and possible breast ultrasound are recommended . BI-RADS Category 0: Incomplete: Needs additional imaging evaluation.
--- NOTE | ~2024-10-06 | DEXA_ITS ---
Bone Density Report Name: KEVIN DO Age: 64 Sex: Female Ethnicity: White Date of : 1960 Indication: postmenopausal; screening for osteoporosis; parental hip fracture; inflammatory bowel disease; prior fracture; hysterectomy; Referring Provider: JUDITH TRIPP Study: Bone densitometry was performed. Exam Date: October 06, 2024 Accession number: [id number] Bone Density: Region BMD T-score Z-score Classification AP Spine(L1-L4) 0.963 -0.8 0.9 Normal Femoral Neck (Left) 0.809 -0.4 1.1 Normal Total Hip (Left) 0.933 -0.1 1.1 Normal World Health Organization criteria for BMD impression classify patients as: Normal (T-score at or above -1.0), Osteopenia (T-score between -1.0 and -2.5), or Osteoporosis (T-score at or below -2.5). 10-year Fracture Risk: FRAX not reported because: All T-scores for Spine Total, Hip Total, Femoral Neck at or above -1.0 Previous Exams: Region Exam Age BMD T-score BMD Change BMD Change Date g/cm2 vs Baseline vs Previous Total Hip(Left) 10/06/2024 64 0.933 -0.1 -0.125 (-11.8% -0.125 (-11.8% 06/25/2019 58 1.058 0.9 *Denotes significance at 95% confidence level, LSC for Total Hip = 0.027 g/cm2 # Denotes dissimilar scan types or analysis methods Clinical Information Provided by Patient: Has had a low trauma fracture Parent has had a hip fracture Has used the following medications: Vitamin D, Calcium Has the following medical conditions: Inflammatory bowel diseases, Hysterectomy Patient maximum height was 66 Menopause Age: 45 No regular weight bearing exercise Drinks caffeinated beverages Onset of menses at age 12 Number of children 3 Impression: The patient has normal bone mass. The patient has risk factors, including: parental hip fracture, previous fracture. No significant bone loss was observed. Discussion: BONE DENSITY IS ABOVE THE MINIMUM DESIRABLE LEVEL AT ALL SKELETAL SITES TESTED. This patient?s bone mineral density is above the minimum desirable level (T-score -1.0 or better) at all sites measured. The patient should follow a healthful lifestyle (good nutrition with adequate calcium and vitamin D, and appropriate weight-bearing exercise). Follow-Up: Consider repeating this study in 5 years or sooner if there is some new clinical indication. Reported by: DINO on 10/06/2024 8:23:00 AM. Reviewed, dictated and finalized at location AMagali TURNER
--- OUTSIDE RECORDS SUMMARY | 2024-10-06 07:38 | XMS_ITS | Referral Summary ---
Author Organization [facility] Address [address] [place] [id number] Care Team Providers Care Signal Wirer Name Role Phone Nya Lorenzo MD Unavailable Kavin Byers MD Primary Care Provider Encounters Date Type Department Care Team Description 08/31/2024 11:00 AM MACHINE SET UP OPERATOR Office Visit [facility] Pulmonology [address] [place] [address] [address] [place] [address] Vanessa Ga MD YEMI (obstructive sleep apnea) (Primary Dx); BMI 32.0-32.9,adult; Psychophysiological insomnia; Nonsmoker; Restless legs; Hypersomnia, unspecified 07/22/2024 9:00 AM MACHINE SET UP OPERATOR Office Visit [facility] Cardiology [address] [place] [address] [address] [place] [address] Sebas Al MD Primary hypertension (Primary Dx); MVP (mitral valve prolapse); Mixed hyperlipidemia; Palpitations; MR (congenital mitral regurgitation); Obesity (BMI 30-39.9) from Last 3 Months Allergies Active Allergy [...] on file Legal Sex Female 1:16 AM MACHINE SET UP OPERATOR Gender Identity Not on file Sexual Orientation Not on file Last Filed Vital Signs Vital Sign Reading Time Taken Comments Blood Pressure 155/88 08/31/2024 11:03 AM MACHINE SET UP OPERATOR Pulse 74 08/31/2024 11:03 AM MACHINE SET UP OPERATOR Temperature 36.2 C (97.2 F) 08/31/2024 11:03 AM MACHINE SET UP OPERATOR Respiratory Rate 18 08/31/2024 11:03 AM MACHINE SET UP OPERATOR Oxygen Saturation 98% 08/31/2024 11:03 AM MACHINE SET UP OPERATOR Inhaled Oxygen Concentration - - Weight 92.7 kg (204 lb 6.4 oz) 08/31/2024 11:03 AM MACHINE SET UP OPERATOR Height 167.6 cm (5' 6 ) 08/31/2024 11:03 AM MACHINE SET UP OPERATOR Body Mass Index 32.99 08/31/2024 11:03 AM MACHINE SET UP OPERATOR Plan of Treatment Not on file Procedures Procedure Name Priority Date/Time Associated Diagnosis Comments BASIC METABOLIC PANEL Routine 07/09/2024 9:37 AM MACHINE SET UP OPERATOR Hypokalemia COLONOSCOPY IMAGES 08/02/2015 SCREENING MAMMOGRAM 2D BILATERAL Routine 12/25/2012 1:28 PM CDT from Last 3 Months or Most Recently Relevant to Health Maintenance Results * Basic metabolic panel (07/09/2024 9:37 AM MACHINE SET UP OPERATOR) Glucose 99 65 - 99 mg/dL [facility] [...] [facility] Blood 07/09/2024 9:37 AM MACHINE SET UP OPERATOR 07/09/2024 9:38 AM MACHINE SET UP OPERATOR Sebas Al MD LAB BLOOD ORDERABLES Final Result [facility] [address] [place] [address] * COLONOSCOPY IMAGES (08/02/2015) Anatomical Region Laterality Modality Other Narrative 08/02/2015 Ordered by an unspecified provider. us Historical Provider GI PROCEDURE ORDERABLES F inal [...] M.D. KL:[id number] 03:14 PM 05:38 PM [EOD] us Clifford Shafer MD IMG MAMMO PROCEDURES Final Result from Last 3 Months or Most Recently Relevant to Health Maintenance Insurance [facility] [employer] [employer] [place] [id number] Care Teams Signal Wirer Relationship Specialty Start Date End Date Kavin Byers MD [address] [facility] [address] [place] [address] PCP - General Family Medicine 07/22/24 Nya Lorenzo MD [address] [place] [address] [address] Risk Engineer Cardiovascular Disease 04/12/19
--- OUTSIDE RECORDS SUMMARY | 2024-10-06 07:38 | XMS_ITS | Clinical Summary ---
Author Organization [facility] Address [facility]ly [facility] [place] [address] Care Team Providers Care Sheet Pile Hammer Operator Name Role Phone Unavailable Primary Care Provider [...]
--- OUTSIDE RECORDS SUMMARY | 2024-10-06 07:39 | XMS_ITS | Data Portability ---
Author Organization [facility] [email or web address] , [facility] Address [address] [place] [address] Assessment No assessment recorded. Plan of Treatment Reminders Order Date Submit Date Provider Last Modified By Organization Details Last Modified Time Details Appointments None recorded. Lab None recorded. Referral None recorded. Procedures None recorded. Surgeries None recorded. Imaging MAMMO, screening, digital, bilateral [address] Central Scheduling, [address] [place], [address], 3 11:57:39 bone density [address] Central Scheduling, [address] [place], [address], 3 11:57:39 MAMMO, screening, digital, bilateral 2020 021 [email or web address] Not available 2 16:42:00 Medication Orders Estrace 0.01% (0.1 mg/gram) vaginal cream 2022 023 [facility], [address], [place], [address], 3 10:20:59 clobetasol 0.05 % topical ointment 2022 023 [facility], [address], [place], [address], 3 10:22:11 valacyclovi r 500 mg tablet 2022 023 [facility] [address], [address], [place], [address], 3 10:22:10 Valtrex 500 mg tablet 2020 [facility] [address], [address], [place], [address], 16:17:13 Estrace 0.01% (0.1 mg/gram) vaginal cream 2020 [facility] [address], [address], [place], [address], 16:17:14 clobetasol 0.05 % topical ointment 2020 [facility] [address], [address], [place], [address], 16:17:12 Patient TargetsNo targets recorded. Patient Instructions Encounter Date Encounter Id Patient Instructions Last Modified By Organization Details Last Modified Time 03/05/2023 [id number] weight managemen t education Not available 03/05/2023 10:20:10 mammogram: about this test Not available 03/05/2023 10:20:10 Reason for Referral None Reported. Problems Name Problem SNOMED Code Status Onset Date Resolution Date Notes Provider Name and Address Organization Details Recorded Time Herpes simplex 28687882 Completed 201404/22/2015 Herpes simplex, without complica tion; Location : None Progress : Stable Added By: Sara Carrillo Add to Current Problems : YES ProblemS tatus: Resolve Not Available [facility] 21:36:42 [place] al symptom 31297082 Completed 201209/05/2013 Menopaus e; Location : None Progress : Stable Added By: Alina Michelle Add to Current Problems : NO ProblemS tatus: Resolve Not Available [facility] 21:16:58 Genital herpes simplex 59831583 Completed 201304/05/2020 Genital herpes, other; Progress : Stable Added By: Sara Carrillo Add to Current Problems : NO ProblemS tatus: Resolve Not Available [facility] 2 21:36:42 Hypothyr oidism 01474792 Completed 201202/04/2014 Low thyroid; Progress : Stable Added By: Amarilis William Add to Current Problems : NO ProblemS tatus: Resolve Not Available [facility] 2 21:16:58 Lichen sclerosu s et atrophic us Completed 201607/04/2021 Lichen sclerosu s et atrophic us; Severity : Moderate Progress : Stable Added By: Dejan Hunter Add to Current Problems : YES ProblemS tatus: Current Lichen sclerosu s; Location : None Severity : Moderate Progress : Stable Added By: Dejan Hunter Add to Current Problems : YES ProblemS tatus: Current Lily hernández, [employer] [facility] 1 14:48:28 Herpesvi jessika infectio n 57532493 Completed 201307/04/2021 Genital herpes, other; Location : None Severity : Moderate Progress : Stable Added By: Sara Carrillo Add to Current Problems : YES ProblemS tatus: Current Herpesvi ral infectio n of other urogenit al tract; Severity : Moderate Progress : Stable Added By: Sara Carrillo Add to Current Problems : YES ProblemS tatus: Current Lily hernández, [employer] [facility] 1 14:48:25 Sampling of vagina for Papanico laou smear Active 2018 Encounte r for gynecolo gical examinat ion (general ) (routine ) without abnormal findings ; Progress : Stable Added By: Kimberley Dunn Add to Current Problems : YES ProblemS tatus: Current Not Available [facility] 2 21:36:41 Breast neoplasm screenin g NOS [...] Start Date : 02/09/20 14 Not Available [facility] 1 19:34:58 Localize d sclerode rma [id number] Completed 201604/05/2020 Lichen sclerosu s; Progress : Stable Added By: Dejan Hunter Add to Current Problems : NO ProblemS tatus: Resolve Not Available [facility] 2 21:36:42 Screenin g mammogra phy Active [...] Start Date : 03/06/20 16 Not Available [facility] 2 21:16:58 Screenin g for osteopor osis Active 2018 Encounte r for screenin g for osteopor osis; Progress : Stable Added By: Dejan Hunter Add to Current Problems : YES ProblemS tatus: Current Not Available [facility] 2 21:36:41 Problem Notes None recorded. Procedures Surgical History Date Name Laterality Status Provider Name and Address Organization Details Recorded Time 07/07/19 06 Most Recent [facility] [employer] [facility] 03/05/2023 09:55:01 hysterectomy [facility] 05/28/2021 10:16:20 Imaging Results None recorded. Procedure Notes None recorded. Medical Equipment None Reported. Allergies Allergen ID Allergen Name Allergen Category Reaction Reaction Severity Criticality Documentation Date Start Date Code Code System Note Provider Name and Address Organization Details Recorded Time 227292 tramadol Not available Not available Not available Not available 04/27/20212012 50770 RxNorm Sever ity: Moder ate; Not Available Not Available Not Available 864490 acetamino phen / hydrocodo ne medicatio n Not available Not available Not available 04/27/20212012 81660 2 RxNorm Sever ity: Moder ate; Not Available Not Available Not Available 901893 Tylenol with Codeine medicatio n Not available Not available Not available 04/27/20212012 50777 6 RxNorm Sever ity: Moder ate; Not Available Not Available Not Available 664171 naproxen medicatio n Not available Not available [...] Estradio l 0.05mg Transder mal Patch RxNorm: 733308 Allow Substitu tion: True Refill Denied: No Not Available Not Available Not Available gabapenti n 400 mg capsule TAKE 2 CAPSULES BY MOUTH TWICE DAILY active Not Available Not Available No t Available atenolol 25 mg tablet Take 1 tablet(s ) by mouth daily 2012 active Atenolol 25 mg oral tablet RxNorm: 848996 Allow Substitu tion: True Refill Denied: No [...] acetonid e 0.1 % Topical Cream RxNorm: 1502251 Allow Substitu tion: True Refill Denied: No [...] amitript yline 25 mg oral tablet RxNorm: 589065 Allow Substitu tion: True Refill Denied: No [...] qd x 2 weeks and then twiice/w [place] active Not Available Not Available No t [...] Estradio l 0.05mg Transder mal Patch RxNorm: 358943 Allow Substitu tion: True Refill Denied: No [...] QD 03/25 completed Valtrex 500mg Tablet RxNorm: 432268 Allow Substitu tion: True Refill Denied: No [...] oral Tablet, Extended Release 12 hr RxNorm: 4208354 Allow Substitu tion: True Refill Denied: No [...] Updated DateTime 1 165.1 cm 31.4 kg/m2 49506.2 4 g 98 [degF] 124 mm[Hg] 80 mm[Hg] Lily Hernández [employer] [facility] 1 14:53:00 Date Recorded Body height Body mass index (BMI) Body weight Body temperature Systolic blood pressure Diastolic blood pressure Provider Name and Address Organization Details Last Updated DateTime 3 165.1 cm 31.3 kg/m2 04494.3 7 g 97.4 [degF] 122 mm[Hg] 84 mm[Hg] Leyla Whaley [employer] [facility] 3 09:57:38 Social History Question Answer Notes LastModified by Organizat ion Details LastModified Time Tobacco Smoking Status Former Smoker Leyla Whaley [facility] [employer] [facility] 03/05/2023 09:55:45 What Is Your Level Of Alcohol Consumption? None Information not available 03/05/2023 Are You Blind Or Do You Have Difficulty Seeing? No [email or web address] Information not available 03/05/2023 Are You Deaf Or Do You Have Serious Difficulty Hearing? No [email or web address] Information not available 03/05/2023 What Type Of Diet Are You Following? REGULAR [email or web address] Information not available 03/05/2023 How Many Children Do You Have? 3 Information not available 05/28/2021 What Is Your Relationship Status? [email or web address] Information not available 05/28/2021 Are You Sexually Active? Yes [email or web address] Information not available 05/28/2021 Do You Use Any Illicit Or Recreational Drugs? No Information not available 03/05/2023 Do You Or Have You Ever Used Any Other Forms Of Tobacco Or Nicotine? No [email or web address] Information not available 03/05/2023 Sex: Unknown Functional Status Question Answer Note LastModified by Organizat ion Details LastModified Time What is your exercise level? Occasional [email or web address] Information not available 03/05/2023 Mental Status None recorded. Family History Relationship Description Onset Age of this Age Resolved Age Notes LastModified by Organization Details LastModified Time Father No current problems or disability [email or web address] Not available 03/05 09:55:16 Mother No current problems or disability [email or web address] Not available 03/05 09:55:16 Medical History Condition [...] SNOMED-CT Code Diagnosis ICD10 Code Diagnosis Note [id number] Dejan Hunter MD [facility] [address] [place] [address] 07/04/2021 14:11:55 08/09/2021 08:36:14 Gynecologic examination 37807708 Z01.419 Screening for malignant neoplasm of breast 253975103 Z12.39 Lichen sclerosus 5922317 01 L90.0 COUNSELING was provided today regarding the following topics: healthy eating habits. Patient education given on weight management . and post-menop ausal hormone therapy risks/bene fits reviewed. Risks reviewed include possible VTE, RI, stroke, and breast cancer. Alternate therapy reviewed [...] us in 1-2 months . Atrophic vaginitis 94396 000 N95.2 estrace cream pea size amount [...] times per week Genital he rpes simplex 25472863 A60.9 [id number] Dejan Hunter MD [facility] [address] [place] [address] 03/05/2023 09:42:22 03/05/2023 12:07:06 Gynecologic examination 35067876 Z01.89 y.o. here for annual exam.- Pap [...] annual or PRN Screening for cancer 158 39798 Z19.1 Screening for malignant neoplasm of breast 872879455 Z12.31 Screening for osteoporosis 293738536 Z13.820 Screening for cardiovascular system disease 355551253 Z13.6 Diabetes m ellitus screening 081740815 Z13.1 Depression screening 171 141770 Z13.31 Atrophic vaginitis 33164 000 N95.2 estrace cream pea size amount [...] to 2 times per week Lichen sclerosus 8485493 01 L90.0 COUNSELING was provided today regarding the following topics: healthy eating habits. Patient education given on weight management . and post-menop ausal hormone therapy risks/bene fits reviewed. Risks reviewed include possible VTE, RI, stroke, and breast cancer. Alternate therapy reviewed [...] 1-2 months . Genital he rpes simplex 33092844 A60.9 Health Concerns Section Related Observation LastModified by Organization Detai ls LastModified Time None Recorded Concern Status LastModified by Organization Details LastModified Time None Recorded Advance Directives Directive None Recorded Payers Encounter Date Sequence Insurance Name Policy Number Policy Morel Covered Member ID Morel Member ID Guarantor Name 07/04/2021 1 [facility] (MEDICARE REPLACEMENT/A DVANTAGE - PPO) [id number] Mary Diane [id number] Mary Diane 03/05/2023 1 [facility] (MEDICARE REPLACEMENT/A DVANTAGE - PPO) [id number] Mary Diane [id number] Mary Diane Notes Date Note Type Note [...] She is post hysterectomy Dejan Hunter MD [address] [place] [address], [phone], [facility] [employer] 08/08/2021 22:58:10 03/05/2023 text/html Pt is here today for annual. Pt stated she was told she didn't need a pap any more. Pt declines STD screening and blood work. Pt denies any complaints or concerns at this time. Dejan Hunter MD [address] [place] [address], [phone], [facility] [employer] [facility] 03/05/2023 10:27:06 OBGyn Episode No OBEpisode recorded.
--- OUTSIDE RECORDS SUMMARY | 2024-10-06 07:39 | XMS_ITS | Clinical Summary ---
Author Organization [facility] at the [facility] Address [address] [place] [address] Care Team Providers Care Counter Control Operator Name Role Phone Nya Lorenzo MD Unavailable [phone] Kavin Byers MD Primary Care Provider Allergies [...] Department Care Team Description 08/31/2024 11:00 AM REGISTERED NURSE HH CASE MANAGER Office Visit [facility] Pulmonology [address] [place] [address] Vanessa Ga MD YEMI (obstructive sleep apnea) (Primary Dx); BMI 32.0-32.9,adult; Psychophysiological insomnia; Nonsmoker; Restless legs; Hypersomnia, unspecified 07/22/2024 9:00 AM REGISTERED NURSE HH CASE MANAGER Office Visit [facility] Cardiology [address] [place] [address] Sebas Al MD Primary hypertension (Primary Dx); MVP (mitral valve prolapse); Mixed hyperlipidemia; Palpitations; MR (congenital mitral regurgitation); Obesity (BMI 30-39.9) from Last 3 Months Surgical History Surgery Date Site/Laterality Comments TONSILLECTOMY HYSTERECTOMY REVISION TOTAL HIP ARTHROPLASTY 03/03/2024 Right Medical History Medical History Date Comments HTN (hypertension) MVP (mitral valve prolapse) [place] (myocardial infarction) Elevated brain natriuretic peptide (BNP) [...] on file Legal Sex Female 1:16 AM REGISTERED NURSE HH CASE MANAGER Gender Identity Not on file Sexual Orientation Not on file Obstetrics History Last Filed Vital Signs Vital Sign Reading Time Taken Comments Blood Pressure 155/88 08/31/2024 11:03 AM REGISTERED NURSE HH CASE MANAGER Pulse 74 08/31/2024 11:03 AM REGISTERED NURSE HH CASE MANAGER Temperature 36.2 C (97.2 F) 08/31/2024 11:03 AM REGISTERED NURSE HH CASE MANAGER Respiratory Rate 18 08/31/2024 11:03 AM REGISTERED NURSE HH CASE MANAGER Oxygen Saturation 98% 08/31/2024 11:03 AM REGISTERED NURSE HH CASE MANAGER Inhaled Oxygen Concentration - - Weight 92.7 kg (204 lb 6.4 oz) 08/31/2024 11:03 AM REGISTERED NURSE HH CASE MANAGER Height 167.6 cm (5' 6 ) 08/31/2024 11:03 AM REGISTERED NURSE HH CASE MANAGER Body Mass Index 32.99 08/31/2024 11:03 AM REGISTERED NURSE HH CASE MANAGER Plan of Treatment Health Maintenance Due Date [...] BASIC METABOLIC PANEL Routine 07/09/2024 9:37 AM REGISTERED NURSE HH CASE MANAGER Hypokalemia COLONOSCOPY IMAGES 08/02/2015 SCREENING MAMMOGRAM 2D BILATERAL Routine 12/25/2012 1:28 PM CDT from Last 3 Months or Most Recently Relevant to Health Maintenance Results * Basic metabolic panel (07/09/2024 9:37 AM REGISTERED NURSE HH CASE MANAGER) Glucose 99 65 - 99 mg/dL [facility] [...] [facility] Blood 07/09/2024 9:37 AM REGISTERED NURSE HH CASE MANAGER 07/09/2024 9:38 AM REGISTERED NURSE HH CASE MANAGER Sebas Al MD LAB BLOOD ORDERABLES Final Result [facility] [address] [address] [address] * COLONOSCOPY IMAGES (08/02/2015) Anatomical Region Laterality [...] Most Recently Relevant to Health Maintenance Insurance [facility] MEDICARE ADVANTAGE [facility] MEDICARE ADVANTAGE Care Teams Counter Control Operator Relationship Specialty Start Date End Date Kavin Byres MD [address] [address] PCP - General Family Medicine 07/22/24 Nya Lorenzo MD [address] [place] [address] [address] [employer] Crew Chief Cardiovascular Disease 04/12/19
== END 2024-10-06 07:36 | disposition home or self-care (01) ==
LOC: ANHIMG 07:36
PROVIDERS: PCP Family Medicine; Visit Provider Physician Assistant
DX: Z12.31 Encounter for screening mammogram for malignant neoplasm of breast (principal); R92.8 Other abnormal and inconclusive findings on diagnostic imaging of breast; Z78.0 Asymptomatic menopausal state
CPT/HCPCS: 77063; 77067; 77080

== ENCOUNTER 2024-10-14 11:48 | Outpatient (CLI) | payer MEDICARE, SELFPAY ==
--- NOTE | ~2024-10-14 | MMUS_ITS ---
EXAMINATION: MM diagnostic harjit BI w queenie, US breast BI complete HISTORY: Follow-up breast asymmetries TECHNIQUE: Additional 3-D tomosynthesis images of the breasts were performed and synthetic 2-D images were generated. CAD analysis was submitted and interpreted. High resolution bilateral complete breas t ultrasound was performed. COMPARISON: Comparison to multiple prior studies sequentially, with oldest reviewed study dated 06/07. BREAST PARENCHYMAL COMPOSITION: Not dense: There are scattered areas of fibroglandular density. FINDINGS: MAMMOGRAPHIC FINDINGS: There are no suspicious masses, calcifications or architectural distortion in the right breast to sug gest malignancy.There is a focal asymmetry superiorly in the left breast on mediolateral view, middle third. ULTRASOUND: Complete bilateral breast ultrasound including all 4 quadrants in the subareolar locations. Right breast: Normal heterogeneous echotexture without focal solid or cystic mass. Left breast: At 2:00, 6 cm from the nipple there is an 8 mm intramammary lymph node. No suspicious ma sses to suggest malignancy. This corresponds to the mammographic finding. IMPRESSION: 1. No evidence for malignancy in either breast. 2. Routine yearly screening mammogram and regular clinical breast examination are recommended. BI-RADS Category 2: Benign finding(s). Reviewed, dictated and finalized at location A. IMPRESSION: 1. No evidence for malignancy in either breast. 2. Routine yearly screening mammogram and regular clinical breast examination a re recommended. BI-RADS Category 2: Benign finding(s).
--- OUTSIDE RECORDS SUMMARY | 2024-10-14 12:31 | XMS_ITS | Referral Summary ---
Author Organization [facility] at the [facility] Address [address] [place] [address] Care Team Providers Care Strategy Analyst Name Role Phone Nya Lorenzo MD Unavailable Kavin Byers MD Primary Care Provider Encounters Date Type Department Care Team Description 08/31/2024 11:00 AM MANAGER COUNTRY Office Visit [facility] Pulmonology [address] [place] [address] [address] [place] [address] Vanessa Ga MD YEMI (obstructive sleep apnea) (Primary Dx); BMI 32.0-32.9,adult; Psychophysiological insomnia; Nonsmoker; Restless legs; Hypersomnia, unspecified 07/22/2024 9:00 AM MANAGER COUNTRY Office Visit [facility] Cardiology [address] [place] [address] [address] [place] [address] Sebas Al MD Primary hypertension [...] on file Legal Sex Female 1:16 AM MANAGER COUNTRY Gender Identity Not on file Sexual Orientation Not on file Last Filed Vital Signs Vital Sign Reading Time Taken Comments Blood Pressure 155/88 08/31/2024 11:03 AM MANAGER COUNTRY Pulse 74 08/31/2024 11:03 AM MANAGER COUNTRY Temperature 36.2 C (97.2 F) 08/31/2024 11:03 AM MANAGER COUNTRY Respiratory Rate 18 08/31/2024 11:03 AM MANAGER COUNTRY Oxygen Saturation 98% 08/31/2024 11:03 AM MANAGER COUNTRY Inhaled Oxygen Concentration - - Weight 92.7 kg (204 lb 6.4 oz) 08/31/2024 11:03 AM MANAGER COUNTRY Height 167.6 cm (5' 6 ) 08/31/2024 11:03 AM MANAGER COUNTRY Body Mass Index 32.99 08/31/2024 11:03 AM MANAGER COUNTRY Plan of Treatment Not on file Procedures Procedure Name Priority Date/Time Associated Diagnosis Comments COLONOSCOPY IMAGES 08/02/2015 SCREENING MAMMOGRAM 2D BILATERAL Routine 12/25/2012 1:28 PM CDT from Last 3 Months or Most Recently Relevant to Health Maintenance Results * COLONOSCOPY IMAGES (08/02/2015) Anatomical Region Laterality Modality Other Narrative 08/02/2015 Ordered by an unspecified provider. us Historical Provider MD GARBER PROCEDURE ORDERABLES F inal Result * Screening [...] M.D. KL:jw 03:14 PM 05:38 PM [EOD] Narrative 01/01/2013 [...] Most Recently Relevant to Health Maintenance Insurance [facility] MEDICARE ADVANTAGE [facility] MEDICARE ADVANTAGE Care Teams Strategy Analyst Relationship Specialty Start Date End Date Kavin Byers MD [address] [place] [address] PCP - General Family Medicine 07/22/24 Nya Lorenzo MD [address] [place] [address] [employer] Cardiovascular Disease 04/12/19
--- OUTSIDE RECORDS SUMMARY | 2024-10-14 12:31 | XMS_ITS | Clinical Summary ---
Author Organization [facility] Center Address [address] [place] [address] Care Team Providers Care Customer Loyalty Representative Name Role Phone Nya Lorenzo MD Unavailable [phone] Kavin Byers MD Primary Care Provider Allergies [...] Department Care Team Description 08/31/2024 11:00 AM CHURCH MUSICIAN Office Visit [facility] Pulmonology [address] [place] [address] Vanessa Ga MD YEMI (obstructive sleep apnea) (Primary Dx); BMI 32.0-32.9,adult; Psychophysiological insomnia; Nonsmoker; Restless legs; Hypersomnia, unspecified 07/22/2024 9:00 AM [employer] [employer] Office Visit [facility] Cardiology [address] [place] [address] Sebas Al MD Primary hypertension (Primary Dx); MVP (mitral valve prolapse); Mixed hyperlipidemia; Palpitations; MR (congenital mitral regurgitation); Obesity (BMI 30-39.9) from Last 3 Months Surgical History Surgery Date Site/Laterality Comments TONSILLECTOMY HYSTERECTOMY REVISION TOTAL HIP ARTHROPLASTY 03/03/2024 Right Medical History Medical History Date Comments HTN (hypertension) MVP (mitral valve prolapse) Old SC (myocardial infarction) Elevated brain natriuretic peptide (BNP) [...] on file Legal Sex Female 1:16 AM [employer]CH [employer]ICIAN Gender Identity Not on file Sexual Orientation Not on file Obstetrics History Last Filed Vital Signs Vital Sign Reading Time Taken Comments Blood Pressure 155/88 08/31/2024 11:03 AM [employer]ICIAN Pulse 74 08/31/2024 11:03 AM [employer]ICIAN Temperature 36.2 C (97.2 F) 08/31/2024 11:03 AM CHURCH MUSICIAN Respiratory Rate 18 08/31/2024 11:03 AM CHURCH MUSICIAN Oxygen Saturation 98% 08/31/2024 11:03 AM CHURCH MUSICIAN Inhaled Oxygen Concentration - - Weight 92.7 kg (204 lb 6.4 oz) 08/31/2024 11:03 AM CHURCH MUSICIAN Height 167.6 cm (5' 6 ) 08/31/2024 11:03 AM CHURCH MUSICIAN Body Mass Index 32.99 08/31/2024 11:03 AM CHURCH MUSICIAN Plan of Treatment Health Maintenance Due Date [...] REPORT 01/01/2013 9:18 AM: Zoe Aguilar M.D. Kylah Bonilla:fabiana 03:14 PM 05:38 PM [EOD] Narrative 01/01/2013 [...] REPORT 01/01/2013 9:18 AM: Zoe Aguilar M.D. Kylah Bonilla:fabiana 03:14 PM 05:38 PM [EOD] Clifford Shafer MD IMG MAMMO PROCEDURES Final Result from Last 3 Months or Most Recently Relevant to Health Maintenance Insurance [facility] [employer] [facility] Address: [address] [address] [place] [address] [facility] [facility] Address: [address] [address] [place] [address] Care Teams Customer Loyalty Representative Relationship Specialty Start Date End Date Kavin Byers MD [address] [address] PCP - General Family Medicine 07/22/24 Nya Lorenzo MD [address] [facility] [place] [address] [address] V Belt Finisher Cardiovascular Disease 04/12/19
--- OUTSIDE RECORDS SUMMARY | 2024-10-14 12:31 | XMS_ITS | Clinical Summary ---
Author Organization [facility] Address [facility] [place] [address] Care Team Providers Care Airborne Weapons Technical Manager Name Role Phone Unavailable Primary Care Provider [...] 2010 COVID-19 Vaccine (2023-2 5 season) 2024 RSV Immunization or 60+ Years (1 [...]
--- OUTSIDE RECORDS SUMMARY | 2024-10-14 12:31 | XMS_ITS | Data Portability ---
Author Organization [facility] [employer] , [facility] Address [address] [place] [address] Assessment No assessment recorded. Plan of Treatment Reminders Order Date Submit Date Provider Last Modified By Organization Details Last Modified Time Details Appointments None recorded. Lab None recorded. Referral None recorded. Procedures None recorded. Surgeries None recorded. Imaging MAMMO, screening, digital, bilateral [address] Central Scheduling, [address] [place], [address], 3 11:57:39 bone density [address] [facility] Sched[facility], [address] [place], [address], 3 11:57:39 MAMMO, screening, digital, bilateral 2020 021 [email or web address] Not available 2 16:42:00 Medication Orders Estrace 0.01% (0.1 mg/gram) vaginal cream 2022 023 [facility] [address], [place], [address], 3 10:20:59 clobetasol 0.05 % topical ointment 2022 023 [facility] [address], [place], [address], 3 10:22:11 valacyclovi r 500 mg tablet 2022 023 [facility] [address], [place], [address], 3 10:22:10 Valtrex 500 mg tablet 2020 [facility] [address], [place], [address], 16:17:13 Estrace 0.01% (0.1 mg/gram) vaginal cream 2020 [facility] [address], [place], [address], 16:17:14 clobetasol 0.05 % topical ointment 2020 [facility] [address], [place], [address], 16:17:12 Patient TargetsNo targets recorded. Patient Instructions Encounter Date Encounter Id Patient Instructions Last Modified By Organization Details Last Modified Time 03/05/2023 [id number] weight managemen t education Not available 03/05/2023 10:20:10 mammogram: about this test Not available 03/05/2023 10:20:10 Reason for Referral None Reported. Problems Name Problem SNOMED Code Status Onset Date Resolution Date Notes Provider Name and Address Organization Details Recorded Time Herpes simplex 81510907 Completed 201404/22/2015 Herpes simplex, without complica tion; Location : None Progress : Stable Added By: Sara Carrillo Add to Current Problems : YES ProblemS tatus: Resolve Not Available [facility] 21:36:42 Men[place] al symptom 57537346 Completed 201209/05/2013 Menopaus e; Location : None Progress : Stable Added By: Alina Michelle Add to Current Problems : NO ProblemS tatus: Resolve Not Available [facility] 21:16:58 Genital herpes simplex 24810489 Completed 201304/05/2020 Genital herpes, other; Progress : Stable Added By: Sara Carrillo Add to Current Problems : NO ProblemS tatus: Resolve Not Available [facility] 2 21:36:42 Hypothyr oidism 92269733 Completed 201202/04/2014 Low thyroid; Progress : Stable Added By: Amarilis William Add to Current Problems : NO ProblemS tatus: Resolve Not Available [facility] 2 21:16:58 Lichen sclerosu s et atrophic us Completed 201607/04/2021 Lichen sclerosu s et atrophic us; Severity : Moderate Progress : Stable Added By: Dejan Hunter Add to Current Problems : YES ProblemS tatus: Current Lichen sclerosu s; Location : None Severity : Moderate Progress : Stable Added By: Dejan Hunter Add to Current Problems : YES ProblemS tatus: Current Lily hernández, [facility] 1 14:48:28 Herpesvi jessika infectio n [id number] Completed 201307/04/2021 Genital herpes, other; Location : None Severity : Moderate Progress : Stable Added By: Sara Carrillo Add to Current Problems : YES ProblemS tatus: Current Herpesvi ral infectio n of other urogenit al tract; Severity : Moderate Progress : Stable Added By: Sara Carrillo Add to Current Problems : YES ProblemS tatus: Current Lily hernández, [facility] 1 14:48:25 Sampling of vagina for Papanico laou smear Active 2018 Encounte r for gynecolo gical examinat ion (general ) (routine ) without abnormal findings ; Progress : Stable Added By: Kimberley Dunn Add to Current Problems : YES ProblemS tatus: Current Not Available [facility] 2 21:36:41 Breast neoplasm screenin g NOS [...] Start Date : 02/09/20 14 Not Available [facility] 1 19:34:58 Localize d sclerode rma [id number] Completed 201604/05/2020 Lichen sclerosu s; Progress : Stable Added By: Dejan Hunter Add to Current Problems : NO ProblemS tatus: Resolve Not Available [facility] 2 21:36:42 Screenin g mammogra phy Active [...] Start Date : 03/06/20 16 Not Available [facility] 2 21:16:58 Screenin g for osteopor osis Active 2018 Encounte r for screenin g for osteopor osis; Progress : Stable Added By: Dejan Hunter Add to Current Problems : YES ProblemS tatus: Current Not Available [facility] 2 21:36:41 Problem Notes None recorded. Procedures Surgical History Date Name Laterality Status Provider Name and Address Organization Details Recorded Time 07/07/19 06 Most Recent [facility] 03/05/2023 09:55:01 hysterectomy [facility] 05/28/2021 10:16:20 Imaging Results None recorded. Procedure Notes None recorded. Medical Equipment None Reported. Allergies Allergen ID Allergen Name Allergen Category Reaction Reaction Severity Criticality Documentation Date Start Date Code Code System Note Provider Name and Address Organization Details Recorded Time 732384 tramadol Not available Not available Not available Not available 04/27/20212012 09300 RxNorm Sever ity: Moder ate; Not Available Not Available Not Available 130109 acetamino phen / hydrocodo ne medicatio n Not available Not available Not available 04/27/20212012 85066 2 RxNorm Sever ity: Moder ate; Not Available Not Available Not Available 929095 Tylenol with Codeine medicatio n Not available Not available Not available 04/27/20212012 15984 6 RxNorm Sever ity: Moder ate; Not Available Not Available Not Available 441057 naproxen medicatio n Not available Not available [...] Estradio l 0.05mg Transder mal Patch RxNorm: 414369 Allow Substitu tion: True Refill Denied: No Not Available Not Available Not Available gabapenti n 400 mg capsule TAKE 2 CAPSULES BY MOUTH TWICE DAILY active Not Available Not Available No t Available atenolol 25 mg tablet Take 1 tablet(s ) by mouth daily 2012 active Atenolol 25 mg oral tablet RxNorm: 932353 Allow Substitu tion: True Refill Denied: No [...] acetonid e 0.1 % Topical Cream RxNorm: 6336580 Allow Substitu tion: True Refill Denied: No [...] amitript yline 25 mg oral tablet RxNorm: 842049 Allow Substitu tion: True Refill Denied: No [...] qd x 2 weeks and then twiice/w mentasta active Not Available Not Available No t [...] Estradio l 0.05mg Transder mal Patch RxNorm: 974258 Allow Substitu tion: True Refill Denied: No [...] QD 03/25 completed Valtrex 500mg Tablet RxNorm: 490582 Allow Substitu tion: True Refill Denied: No [...] oral Tablet, Extended Release 12 hr RxNorm: 5690422 Allow Substitu tion: True Refill Denied: No [...] Updated DateTime 1 165.1 cm 31.4 kg/m2 82891.2 4 g 98 [degF] 124 mm[Hg] 80 mm[Hg] Lily Hernández [facility] 1 14:53:00 Date Recorded Body height Body mass index (BMI) Body weight Body temperature Systolic blood pressure Diastolic blood pressure Provider Name and Address Organization Details Last Updated DateTime 3 165.1 cm 31.3 kg/m2 83925.3 7 g 97.4 [degF] 122 mm[Hg] 84 mm[Hg] Leyla Whaley [facility] 3 09:57:38 Social History Question Answer Notes LastModified by Organizat ion Details LastModified Time Tobacco Smoking Status Former Smoker Leyla Whaley [facility] 03/05/2023 09:55:45 What Is Your Level Of Alcohol Consumption? None Information not available 03/05/2023 Are You Blind Or Do You Have Difficulty Seeing? No [email or web address] Information not available 03/05/2023 Are You Deaf Or Do You Have Serious Difficulty Hearing? No [email or web address] Information not available 03/05/2023 What Type Of Diet Are You Following? REGULAR [email or web address] Information not available 03/05/2023 How Many Children Do You Have? 3 [email or web address] Information not available 05/28/2021 What Is Your Relationship Status? [email or web address] Information not available 05/28/2021 Are You Sexually Active? Yes [email or web address] Information not available 05/28/2021 Do You Use Any Illicit Or Recreational Drugs? No [email or web address] Information not available 03/05/2023 Do You Or Have You Ever Used Any Other Forms Of Tobacco Or Nicotine? No [email or web address] Information not available 03/05/2023 Sex: Unknown Functional Status Question Answer Note LastModified by Organizat ion Details LastModified Time What is your exercise level? Occasional [email or web address] Information not available 03/05/2023 Mental Status None recorded. Family History Relationship Description Onset Age of this Age Resolved Age Notes LastModified by Organization Details LastModified Time Father No current problems or disability [email or web address] Not available 03/05 09:55:16 Mother No current problems or disability [email or web address] Not available 03/05 09:55:16 Medical History Condition Response Heart Disease Y High Blood Pressure Y High Cholesterol Y Gynecological History Statement/Question Response If Post [...] SNOMED-CT Code Diagnosis ICD10 Code Diagnosis Note [id number] Dejan Hunter MD [facility] [address] [place] [address] 07/04/2021 14:11:55 08/09/2021 08:36:14 Gynecologic examination 31401114 Z01.419 Screening for malignant neoplasm of breast 527274051 Z12.39 Lichen sclerosus 3527915 01 L90.0 COUNSELING was provided today regarding the following topics: healthy eating habits. Patient education given on weight management . and post-menop ausal hormone therapy risks/bene fits reviewed. Risks reviewed include possible VTE, DE, stroke, and breast cancer. Alternate therapy reviewed [...] us in 1-2 months . Atrophic vaginitis 66983 000 N95.2 estrace cream pea size amount [...] times per week Genital he rpes simplex 39281716 A60.9 [id number] Dejan Hunter MD [facility] [address] [place] [address] 03/05/2023 09:42:22 03/05/2023 12:07:06 Gynecologic examination 28271568 Z01.419 y.o. here for annual exam.- Pap [...] annual or PRN Screening for cancer 158 45785 Z19.1 Screening for malignant neoplasm of breast 711101032 Z12.31 Screening for osteoporosis 998525665 Z13.820 Screening for cardiovascular system disease 922727445 Z13.6 Diabetes m ellitus screening 450067963 Z13.1 Depression screening 171 526360 Z13.31 Atrophic vaginitis 45462 000 N95.2 estrace cream pea size amount [...] to 2 times per week Lichen sclerosus 0956529 01 L90.0 COUNSELING was provided today regarding the following topics: healthy eating habits. Patient education given on weight management . and post-menop ausal hormone therapy risks/bene fits reviewed. Risks reviewed include possible VTE, DE, stroke, and breast cancer. Alternate therapy reviewed [...] 1-2 months . Genital he rpes simplex 67897181 A60.9 Health Concerns Section Related Observation LastModified by Organization Detai ls LastModified Time None Recorded Concern Status LastModified by Organization Details LastModified Time None Recorded Advance Directives Directive None Recorded Payers Encounter Date Sequence Insurance Name Policy Number Policy Morel Covered Member ID Morel Member ID Guarantor Name 07/04/2021 1 [facility] (MEDICARE REPLACEMENT/A DVANTAGE - PPO) [id number] Mary Daine [id number] Mary Diane 03/05/2023 1 [facility] (MEDICARE REPLACEMENT/A DVANTAGE - PPO) [id number] Mary Diane [id number] Mary Diane Notes Date Note Type Note [...] She is post hysterectomy Dejan Hunter MD [address] [place] [address], [address], [facility] 08/08/2021 22:58:10 03/05/2023 text/html Pt is here today for annual. Pt stated she was told she didn't need a pap any more. Pt declines STD screening and blood work. Pt denies any complaints or concerns at this time. Dejan Hunter MD [address] [place] [address], [address], [facility] 03/05/2023 10:27:06 OBGyn Episode No OBEpisode recorded.
== END 2024-10-14 11:49 | disposition home or self-care (01) ==
PROVIDERS: PCP Physician Assistant; Visit Provider Physician Assistant
DX: R92.8 Other abnormal and inconclusive findings on diagnostic imaging of breast (principal)
CPT/HCPCS: 76641; 77062; 77066; G0279

== ENCOUNTER 2024-10-28 15:11 | Outpatient (RCR) | payer MEDICARE, SELFPAY ==
--- NOTE | 2024-10-28 16:18 | OPREHPOC ---
Outpatient Therapy Plan of Care This is a Multidisciplinary Plan of Care that may contain components documented by all disciplines (PT, OT, and ST.) PT Problem 1 PT Problem #1 Knowledge Deficit PT Goal 1 Goal / Goal Update independent and compliant with HEP Target Visit 4 PT Problem 2 PT Problem #2 Pain PT Goal 1 Goal / Goal Update decrease pain at worst to 2/10 or less in the R hip Target Visit 8 PT Problem 3 PT Problem #3 Impaired Strength PT Goal 1 Goal / Goal Update 4+/5 or better R hip strength 5/5 R knee flex 5/5 R ankle DF Target Visit 8 PT Problem 4 PT Problem #4 Impaired Functional Mobility PT Goal 1 Goal / Goal Update LEFS to display 20% or less functional deficits patient to squat and mushroom picker small object from floor with safe mechanics and no pain patient to ambulate with normal gait mechanics Target Visit 8
--- NOTE | 2024-10-28 16:18 | PTOPEVAL1 ---
Assessment and note entered by JT File, PT Evaluation Information Assessment Status Evaluation ICD-10 Condition Codes (PT) Pain in right hip M25.551 Onset 03/02/24 Subjective Information patient reports she had hip replacement in February of last year. she reports walking is no problem, but bending forward and coming back up causes pain along the side of the R thigh. she reports she did not have any PT after her hip replacement. she reports she also has some pain in the back of the R LE when sitting in a firm/wooden chair. she reports she has no NTB in the R LE, but does report a throbbing at times to the front of the R thigh. she reports she was there a few days ago and got a shot, but it has not seemed to change her pain yet. she reports she avoids bending and squatting due to the pain it causes. Reported Pain Level Pain Score 1: Self Report Assessment PT Clinical Summary mrs. jenkins is a pleasant 64 yo woman who presents to skilled PT services for evaluation and treatment of R lateral hip pain. she recently had a R total hip replacement, and displays tenderness over the greater trochanter and R ITB. she also displays weakness of the R hip and LE, as well as, abnormal gait mechanics and decreased functional activity performance. continued skilled PT is indicated to improve her objective/functional deficits and return to her prior level functional activity performance/quality of life. Plan of Care Interventions Electrical Stimulation,Gait Training,Hot Pack/Cold Pack,Manual Therapy,Neuro Re-education,Patient/ Caregiver Education,Therapeutic Activities, Therapeutic Exercise PT Services Indicated Yes Treatment Frequency and 2x weekly for 8 visits Duration These treatments will address the objective and functional deficits as defined above. The patient will be advanced safely and appropriately in order for the patient to progress towards his/her prior level of function. Additional exercises will be introduced and as well as a comprehensive home exercise program upon discharge, if needed, ?to ensure carryover of functional gains achieved in the clinic. This treatment plan has been reviewed and agreement upon by the patient.
--- NOTE | 2024-11-23 13:54 | OPREHPOC ---
Outpatient Therapy Plan of Care This is a Multidisciplinary Plan of Care that may contain components documented by all disciplines (PT, OT, and ST.) PT Problem 1 PT Problem #1 Knowledge Deficit PT Goal 1 Goal / Goal Update independent and compliant with HEP Target Visit 4 Progress Met PT Problem 2 PT Problem #2 Pain PT Goal 1 Goal / Goal Update decrease pain at worst to 2/10 or less in the R hip Target Visit 8 Progress Not Met PT Problem 3 PT Problem #3 Impaired Strength PT Goal 1 Goal / Goal Update 4+/5 or better R hip strength 5/5 R knee flex 5/5 R ankle DF Target Visit 8 PT Problem 4 PT Problem #4 Impaired Functional Mobility PT Goal 1 Goal / Goal Update LEFS to display 20% or less functional deficits. not met patient to squat and picking tech small object from floor with safe mechanics and no pain. met, but patient reports fatigue when staying down to grab something. patient to ambulate with normal gait mechanics. not met Target Visit 8 Progress Not Met
--- NOTE | 2024-11-23 13:54 | PTOPREEVAL ---
Assessment and note entered by JT File, PT Evaluation Information Assessment Status Re-evaluation ICD-10 Condition Codes (PT) Pain in right hip M25.551 Onset 03/02/24 Subjective Information patient reports she has the most pain still with bending/lifting, and getting up and down. she reports this pain is a 6-7/10 when she performs these activities repetitively. she reports she does not feel she has improved much since starting skilled PT. she reports she has a follow up with her referring MD next week. Reported Pain Level Pain Score 1: Self Report Assessment PT Clinical Summary mrs. jenkins presents to skilled PT for her 8th skilled therapy visit. she displays little to no progress towards goals thus far in skilled PT. she continues to display antalgic gait mechanics, decreased R hip/LE strength, and lack of functional activity tolerance due to pain. she displays minimal change on the LEFS today. at this time, patient will hold continued therapy, and follow up with referring MD for next steps. Plan of Care Interventions Electrical Stimulation,Gait Training,Hot Pack/Cold Pack,Manual Therapy,Neuro Re-education,Patient/ Caregiver Education,Therapeutic Activities, Therapeutic Exercise PT Services Indicated Yes Treatment Frequency and hold therapy. follow up with referring MD for next Duration steps. These treatments will address the objective and functional deficits as defined above. The patient will be advanced safely and appropriately in order for the patient to progress towards his/her prior level of function. Additional exercises will be introduced and as well as a comprehensive home exercise program upon discharge, if needed, ?to ensure carryover of functional gains achieved in the clinic. This treatment plan has been reviewed and agreement upon by the patient.
--- NOTE | 2025-02-22 15:01 | PCPTNOTE ---
discharged due to time between session
== END 2025-01-26 23:59 | disposition home or self-care (01) ==
LOC: CHSPT 15:11
PROVIDERS: Visit Provider Orthopaedic Surgery
DX: M70.61 Trochanteric bursitis, right hip (principal)
CPT/HCPCS: 97014; 97110; 97112; 97140; 97150; 97161; G0283

== ENCOUNTER 2025-02-18 09:51 | Outpatient (CLI) | payer MEDICARE, SELFPAY ==
--- NOTE | ~2025-02-18 | XR_ITS ---
Cervical Spine: AP, lateral, open-mouth views Clinical History: Pain Findings: The normal lordotic curve is maintained. The vertebral bodies and posterior elements appea r intact. The intervertebral disc spaces are well maintained. Moderate facet arthropathy present. Pr e-vertebral soft tissues are unremarkable. Impression: Moderate facet joint degenerative changes in the cervical spine. Reviewed, dictated and finalized at location . Impression: Moderate facet joint degenerative changes in the cervical spine.
--- NOTE | ~2025-02-18 | XR_ITS ---
Lumbosacral Spine: AP and lateral views Clinical History: Pain Findings: The normal lordotic curve is maintained. The vertebral bodies and posterior elements are i ntact. There is moderate degenerative disc narrowing at L4-L5. There is advanced facet arthropathy th roughout the lumbar spine, especially from L3 through S1. The sacroiliac joints are normally outlined . 12 mm right lower pole renal stone probably present. Impression: Moderate degenerative spondylosis, as above. Probable 12 mm right lower pole renal stone. Reviewed, dictated and finalized at location M. Impression: Moderate degenerative spondylosis, as above. Probable 12 mm right lower pole renal stone.
== END 2025-02-18 09:52 | disposition home or self-care (01) ==
PROVIDERS: PCP Family Medicine
DX: M54.2 Cervicalgia (principal); M47.896 Other spondylosis, lumbar region
CPT/HCPCS: 72040; 72100